=== PATIENT | female | born 1960 | race Caucasian/White ===

== ENCOUNTER 2019-11-25 08:52 | Outpatient (REF) | payer OTHER, SELFPAY | END 2019-11-25 08:53 | disposition home or self-care (01) | LOC: HO.MDS 08:52 | PROVIDERS: PCP Internal Medicine; Visit Provider Internal Medicine Gastroenterology | DX: K51.919 Ulcerative colitis, unspecified with unspecified complications (principal) | CPT/HCPCS: 96413; 96415 ==

== ENCOUNTER 2019-11-28 08:31 | Outpatient (REF) | payer OTHER, SELFPAY ==
[2019-11-28 12:00] LABS: Alanine Aminotransferase 23 U/L (0-31); Aspartate Amino Transferase 20 U/L (5-31); Cholesterol 266 mg/dL; Glucose Fasting 91 mg/dL (60-99); HDL Cholesterol 47 mg/dL; LDL Cholesterol Calculated 181 mg/dl; Triglycerides 192 mg/dL
== END 2019-11-28 08:32 | disposition home or self-care (01) ==
LOC: HO.HMGCLDS 08:31
PROVIDERS: PCP Internal Medicine; Visit Provider Internal Medicine
DX: Z00.01 Encounter for general adult medical examination with abnormal findings (principal); Z13.220 Encounter for screening for lipoid disorders
CPT/HCPCS: 80061; 82947; 84450; 84460

== ENCOUNTER → 2019-12-29 08:43 | Outpatient (BNVA) | payer OTHER, SELFPAY | PROVIDERS: PCP Internal Medicine; Referring Provider Internal Medicine; Visit Provider Internal Medicine Gastroenterology | DX: Z13.89 Encounter for screening for other disorder (principal) ==

== ENCOUNTER 2020-01-19 08:01 | Outpatient (REF) | payer OTHER, SELFPAY ==
[2020-01-19 10:43] LABS: MANUAL DIFF FLAG NO
[2020-01-19 10:44] LABS: Basophils Percent Auto 0.3 % (0-2); Eosinophils Percent Auto 0.4 % (0-4); Hematocrit 49.7 % (37-47); Imm Gran Abs Auto 0.05 X10*3/uL (0.00-0.03); Imm Gran Pct Auto 0.5 % (0.0-0.4); Lymphocytes Absolute Auto 2.1 X10*3/uL (1.2-4.9); Lymphocytes Percent Auto 21.5 % (20-40); Mean Corpuscular HGB Conc 32.2 g/dl (31.0-35.0); Mean Corpuscular Hemoglobin 29.6 pg (27.0-33.0); Mean Corpuscular Volume 91.9 fL (80-98); Mean Platelet Volume 10.5 fL (9.4-12.3); Monocytes Absolute Auto 0.8 X10*3/uL (0.1-1.2); Monocytes Percent Auto 8.3 % (2-11); Neutrophils Absolute Auto 6.9 X10*3/uL (2.0-8.3); Platelet Count 248 X10*3/uL (160-400); Red Blood Count 5.41 X10*6/uL (4.20-5.50); Red Cell Distribution Width 13.4 % (11.0-16.0); White Blood Count 9.9 X10*3/uL (4.8-10.8)
[2020-01-19 11:14] LABS: C Reactive Protein 0.85 mg/dL (< or = 0.50)
[2020-01-19 11:21] LABS: Alanine Aminotransferase 15 U/L (0-31); Albumin Level 3.9 g/dL (3.5-5.0); Alkaline Phosphatase 60 U/L (39-117); Anion Gap 13 (12-20); Aspartate Amino Transferase 14 U/L (5-31); Bilirubin Total 0.6 mg/dL (0.0-1.0); Blood Urea Nitrogen 14 mg/dL (9-16); Carbon Dioxide 29 mmol/L (22-29); Chloride 101 mmol/L (96-108); Estimated Glomerular Filt Rate > 60; Glucose Random 96 mg/dL (60-115); Sodium 138 mmol/L (135-145); Total Protein 6.7 g/dL (6.5-8.0)
[2020-01-19 11:41] LABS: Vitamin D 25-OH Total 17.8 ng/mL (>30)
[2020-01-21 21:43] LABS: TS Negative Control Passed; TS Panel A 0; TS Panel B 0; TS Positive Control Passed; TSpotTB Negative (SeeBelow)
== END 2020-01-19 08:02 | disposition home or self-care (01) ==
LOC: HO.MDS 08:01
PROVIDERS: PCP Internal Medicine; Visit Provider Internal Medicine Gastroenterology
DX: K51.90 Ulcerative colitis, unspecified, without complications (principal)
CPT/HCPCS: 36415; 80053; 82306; 85025; 86140; 86481; 96413; 96415; J1745

== ENCOUNTER 2020-03-15 07:50 | Outpatient (REF) | payer OTHER, SELFPAY | END 2020-03-15 07:51 | disposition home or self-care (01) | LOC: HO.MDS 07:50 | PROVIDERS: PCP Internal Medicine; Visit Provider Internal Medicine Gastroenterology | DX: K51.919 Ulcerative colitis, unspecified with unspecified complications (principal) | CPT/HCPCS: 96413; 96415; J1745 ==

== ENCOUNTER → 2020-03-23 12:53 | Outpatient (BNVA) | payer OTHER, SELFPAY | PROVIDERS: Visit Provider Internal Medicine Gastroenterology ==

== ENCOUNTER 2020-05-10 07:54 | Outpatient (REF) | payer OTHER, SELFPAY | END 2020-05-10 07:55 | disposition home or self-care (01) | LOC: HO.MDS 07:54 | PROVIDERS: PCP Internal Medicine; Visit Provider Internal Medicine Gastroenterology | DX: K51.919 Ulcerative colitis, unspecified with unspecified complications (principal) | CPT/HCPCS: 96413; 96415; J1745 ==

== ENCOUNTER 2020-07-05 07:53 | Outpatient (REF) | payer OTHER, SELFPAY | END 2020-07-05 07:54 | disposition home or self-care (01) | LOC: HO.MDS 07:53 | PROVIDERS: PCP Internal Medicine; Visit Provider Internal Medicine Gastroenterology | DX: K51.90 Ulcerative colitis, unspecified, without complications (principal) | CPT/HCPCS: 96413; 96415; J1745 ==

== ENCOUNTER → 2020-08-17 14:03 | Outpatient (BNVA) | payer OTHER, SELFPAY | PROVIDERS: PCP Internal Medicine; Referring Provider Internal Medicine; Visit Provider Internal Medicine Gastroenterology | DX: K51.90 Ulcerative colitis, unspecified, without complications (principal) | CPT/HCPCS: 99212 ==

== ENCOUNTER 2021-03-25 15:00 | Outpatient (REF) | payer OTHER, SELFPAY ==
[2021-03-25 16:34] LABS: MANUAL DIFF FLAG NO
[2021-03-25 16:40] LABS: Basophils Percent Auto 0.3 % (0-2); Eosinophils Absolute Auto 0.1 X10*3/uL (0.0-0.4); Eosinophils Percent Auto 0.6 % (0-4); Hematocrit 47.4 % (37.0-47.0); Hemoglobin 15.1 g/dl (12.0-16.0); Imm Gran Abs Auto 0.04 X10*3/uL (0.00-0.03); Imm Gran Pct Auto 0.4 % (0.0-0.4); Lymphocytes Absolute Auto 2.7 X10*3/uL (1.2-4.9); Lymphocytes Percent Auto 27.6 % (20-40); Mean Corpuscular HGB Conc 31.9 g/dl (31.0-35.0); Mean Corpuscular Hemoglobin 29.2 pg (27.0-33.0); Mean Corpuscular Volume 91.7 fL (80.0-98.0); Mean Platelet Volume 10.6 fL (9.4-12.3); Monocytes Absolute Auto 0.7 X10*3/uL (0.1-1.2); Monocytes Percent Auto 7.3 % (2-11); Neutrophils Absolute Auto 6.3 x10*3/uL (2.0-8.3); Neutrophils Percent Auto 63.8 % (45-73); Platelet Count 277 X10*3/uL (160-400); Red Blood Count 5.17 X10*6/uL (4.20-5.50); Red Cell Distribution Width 13.6 % (11.0-16.0); White Blood Count 9.8 X10*3/uL (4.8-10.8)
[2021-03-25 16:59] LABS: Alanine Aminotransferase 14 U/L (0-31); Alkaline Phosphatase 62 U/L (39-117); Anion Gap 11 (12-20); Aspartate Amino Transferase 17 U/L (5-31); Bilirubin Total 0.2 mg/dL (0.0-1.0); Blood Urea Nitrogen 19 mg/dL (9-16); C Reactive Protein 0.26 mg/dL (< or = 0.50); Calcium 9.4 mg/dL (8.4-10.2); Carbon Dioxide 29 mmol/L (22-29); Chloride 104 mmol/L (96-108); Estimated Glomerular Filt Rate > 60; Glucose Random 95 mg/dL (60-115); Potassium 4.4 mmol/L (3.3-5.1); Sodium 140 mmol/L (135-145); Total Protein 6.7 g/dL (6.5-8.0)
[2021-03-25 17:18] LABS: Erythrocyte Sedimentation Rate 9 MM/HR (0-20)
[2021-03-25 17:19] LABS: Ferritin 83 ng/mL (10-250)
== END 2021-03-25 15:01 | disposition home or self-care (01) ==
LOC: HO.HMGCLDS 15:00
PROVIDERS: Visit Provider Internal Medicine Gastroenterology
DX: K51.90 Ulcerative colitis, unspecified, without complications (principal); K75.81 Nonalcoholic steatohepatitis (NASH); Z79.899 Other long term (current) drug therapy
CPT/HCPCS: 36415; 80053; 82728; 85025; 85652; 86140

== ENCOUNTER → 2021-03-28 13:46 | Outpatient (BNVA) | payer OTHER, SELFPAY | PROVIDERS: PCP Internal Medicine; Referring Provider Internal Medicine; Visit Provider Internal Medicine Gastroenterology | DX: K51.90 Ulcerative colitis, unspecified, without complications (principal) | CPT/HCPCS: 99212 ==

== ENCOUNTER 2021-07-12 07:00 | Outpatient (RCR) | payer OTHER, SELFPAY ==
--- NOTE | 2021-06-20 10:51 | MHC.PT.EP ---
[facility] [place] Office [place] Office [place] Office [address] [phone] F: [phone] F: [phone] F: [phone] F: [phone] Physical Therapy Plan of Care Date of Evaluation: Date of Surgery: none Diagnosis: pain in R hip Assessment: Patient is a 61 year old R handed female who presents with s/s consistent with R hip pain. 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 Patient past medical history includes R femur fracture. Current impairments include pain, posture, flexibility, ROM, strength, activity tolerance and functional mobility. Functional limitations include decreased ability to negotiate stairs, walk and stand longer duration, get in and out of car and transfer. Patient is motivated with good rehab potential. Skilled PT will address impairments and functional limitations in order to achieve goals. Frequency and Duration: The patient will be seen 2x/week for 5 weeks Short Term Goals: I with HEP - 2 weeks R LE strength 4/5 grossly - 3 weeks TTP absent - 3 weeks [employer] Goals: R LE strength 4+/5 grossly - 5 weeks Symmetrical ROM - 5 weeks LEFS 56/80 - 5 weeks Treatment Plan: Modalities to reduce pain, spasms and effusion. Manual therapy to restore motion and function. Therapeutic exercise to improve strength and flexibility. Neuromuscular re-education for posture and balance. Therapeutic activities to return to functional activities of daily living. Electronically signed by: Srinivas Justice, PT Please sign and return to therapist. Thank you for your referral.
--- NOTE | 2021-11-03 10:34 | MHC.PT.DC ---
[facility] [place] [facility] [place] Office [place] Office [address] Gorge Hurtado [address] [phone] F: [phone] F: [phone] F: [phone] F: [phone] Physical Therapy Discharge Report Diagnosis: pain in R hip Date of Surgery: none Date of Evaluation: 06/17/21 Date of Discharge: 07/26/21 Treatments to Date: 5 Cancellations to Date: No Shows to Date: Discharge Status: Improved Function Independent with HEP Discharge Summary: 07/12/21: pt progressed with strength and stability, improved gait symmetry, strength and activity tolerance. min discomfort noted over last 3 visits. 07/06/21: pt still feeling significantly improved with pain and strength, function, mechanics with walking. continue to progress as tolerated. 06/29/21: pt is pain free. notes doing the HEP every day. we progressed strength and will continue to progress strength as tolerated. 06/23/21: we progressed and updated HEP today. pt will attempt to continue while in [place] for a few days. will return on Sunday and we intend to continue with progression. Patient is a 61 year old R handed female who presents with s/s consistent with R hip pain. 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 Patient past medical history includes R femur fracture. Current impairments include pain, posture, flexibility, ROM, strength, activity tolerance and functional mobility. Functional limitations include decreased ability to negotiate stairs, walk and stand longer duration, get in and out of car and transfer. Patient is motivated with good rehab potential. Skilled PT will address impairments and functional limitations in order to achieve goals. Electronically signed by: Srinivas Justice, PT Please sign and return to therapist. Thank you for your referral.
== END 2021-11-03 10:34 | disposition home or self-care (01) ==
LOC: HO.PTCHIC 07:00
PROVIDERS: PCP Internal Medicine; Visit Provider Internal Medicine
DX: M25.551 Pain in right hip (principal)
CPT/HCPCS: 97110; 97162

== ENCOUNTER 2022-01-10 07:48 | Outpatient (REF) | payer OTHER, SELFPAY ==
--- NOTE | ~2022-01-10 | MM_ITS ---
EXAMINATION: MM SCREENING DIGITAL BREAST TOMOSYNTHESIS, BILATERAL CLINICAL INFORMATION: Screening. Asymptomatic. The lifetime risk of breast cancer based on the Tyrer-Cuzick Model is 6%. COMPARISON: Mammography: 12/23/2018 TECHNIQUE: Digital breast tomosynthesis is performed in both the craniocaudal and mediolateral oblique views along with computer-aided detection (CAD). Synthesized 2D images are generated from the tomosynthesis. Additional right MLO view is provided. FINDINGS: The breasts are heterogeneously dense, which may obscure small masses (ACR BI-RADS breast composition Category c). Fibronodular parenchymal pattern is similar to prior exam. There is no interval significant mass or architectural abnormality or developing density. Again, there are smooth benign smooth nodularity with rim calcification central 9:00 left breast and 2 right upper outer quadrant. Diffuse bilateral central and upper outer quadrant calcifications are again seen, overall mildly symmetrically increased. No focal suspicious calcifications. The axilla and skin contours are unremarkable. No significant changes. MM/MM tomosynthesis screening BI IMPRESSION: No mammographic evidence of malignancy. ASSESSMENT: BI-RADS 2: Benign RECOMMENDATION: Routine annual mammography screening. This patient's information was entered into a reminder system with a target due date for their next mammogram.
== END 2022-01-10 07:49 | disposition home or self-care (01) ==
LOC: HO.MAMMO 07:48
PROVIDERS: PCP Internal Medicine; Visit Provider Internal Medicine
DX: Z12.31 Encounter for screening mammogram for malignant neoplasm of breast (principal)
CPT/HCPCS: 77063; 77067

== ENCOUNTER 2022-06-29 07:31 | Outpatient (REF) | payer OTHER, SELFPAY ==
[2022-06-29 12:01] LABS: Anion Gap 10 (12-20); Blood Urea Nitrogen 21 mg/dL (9-16); Calcium 10.1 mg/dL (8.4-10.2); Carbon Dioxide 33 mmol/L (22-29); Chloride 105 mmol/L (96-108); Estimated Glomerular Filt Rate 58; Glucose Fasting 96 mg/dL (60-99); Potassium 4.9 mmol/L (3.3-5.1); Sodium 143 mmol/L (135-145)
== END 2022-06-29 07:32 | disposition home or self-care (01) ==
LOC: HO.HMGCLDS 07:31
PROVIDERS: PCP Internal Medicine; Visit Provider Internal Medicine
DX: Z00.01 Encounter for general adult medical examination with abnormal findings (principal); E78.2 Mixed hyperlipidemia; J45.20 Mild intermittent asthma, uncomplicated; K51.90 Ulcerative colitis, unspecified, without complications; R79.89 Other specified abnormal findings of blood chemistry; Z78.0 Asymptomatic menopausal state
CPT/HCPCS: 36415; 80048

== ENCOUNTER 2022-08-01 12:53 | Outpatient (AMB) | payer OTHER, SELFPAY ==
--- NOTE | 2022-08-01 13:04 | A.OFFPC_ITS ---
Vital Signs 08/01/22 13:28 Height 5 ft 2 in Weight 141 lb BMI 25.8 BP 132/70 Blood Pressure Location Lt brachial Position Sitting Intake Visit Reasons: follow up on Chantix Intake Note: Pt is here today to f/u chantix Allergies peanut Allergy (Unknown, Verified 12/27/22 08:53) itchy throat talc Allergy (Unknown, Verified 12/27/22 08:53) cough, itchy throat rosuvastatin Adverse Reaction (Unknown, Verified 12/27/22 08:53) myalgia Medication List - Last Reconciled 02/12/23 by Afsaneh Harley MD albuterol sulfate 2.5 mg (3 mL) inhalation Q4-6H PRN fluticasone propionate 50 mcg/actuation 1 spray intranasal DAILY magnesium oxide 400 mg PO DAILY montelukast 10 mg PO QPM nebulizer accessories As directed for updraft treatments Symbicort 160-4.5 mcg/actuation (budesonide-formoterol) 2 puffs PO QPM NS varenicline 1 mg PO BID Ventolin HFA 90 mcg/actuation (albuterol sulfate) 2 puffs PO Q6H PRN NS Tobacco use date assessed: 08/01/22 Dental Screening Dental Screen Date: 08/01/22 Did you have a dental visit in the last 12 months?: Yes Did you have a dental problem in the last 6 months where you did not have access to dental care?: No Was dental information given to patient?: Patient has dentist HPI follow up on Chantix HPI Details 62-year-old Katarzyna here today for follow- up regarding her cigarette smoking. She has started taking Chantix on last visit a month ago with successful quitting of smoking reported. Has been feeling well with no complaints at present time. Would like to continue taking Chantix to prevent relapse. [facility] Medical History (Updated 12/27/22 @ 09:30 by Afsaneh Harley MD) Leg cramping Moderate persistent asthma Smoker unmotivated to quit Tubular adenoma of colon Right hip pain Generalized anxiety disorder Menopause Cervical cancer screening Mixed dyslipidemia Low vitamin D level Infliximab (Remicade) long-term use Medication monitoring encounter Surgical History History of colonoscopy History of colonoscopy History of esophagogastroduodenoscopy (EGD) Family History Father CVD (cardiovascular disease) Hyperlipidemia Myocardial infarction Mother HTN (hypertension) Substance use disorder Mental health disorder Brother Depression Mental health disorder Paternal Aunt Myocardial infarction Sister Mental health disorder Son No problems noted. Son No problems noted. Daughter No problems noted. 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 1. Little interest or pleasure in doing things: not at all 2. Feeling down, depressed, or hopeless: not at all 3. Trouble falling or staying asleep, or sleeping too much: not at all 4. Feeling tired or having little energy: not at all 5. Poor appetite or overeating: not at all 6. Feeling bad about yourself - or that you are a failure or have let yourself or your family down: not at all 7. Trouble concentrating on things, such as reading the newspaper or watching television: not at all 8. Moving or speaking so slowly that other people could have noticed. Or the opposite - being so fidgety or restless that you have been moving around a lot more than usual: not at all 9. Thoughts that you would be better off or of hurting yourself in some way: not at all Total score: 0 Depression Screening Interpretation: Negative Source: Developed by Drs. Nj Machuca, Tracey Givens, Raul Robbins and colleagues, with an educational spencer from [employer]. Thrive Questionnaire Date Thrive assessed: 06/09/21 AUDIT C Alcohol Use Questionnaire (AUDIT-C) 1. How often do you have a drink containing alcohol?: Never Total Score: 0 ZULAY-7 AMB Questionnaire ZULAY-7 Date ZULAY - 7 assessed: 06/09/21 Source: Developed by Drs. Nj Machuca, Tracey Givens, Raul Robbins and colleagues, with an educational spencer from [employer]. Review of Systems Const All systems reviewed & are unremarkable except as noted in HPI and below Physical exam (Primary Care) Vital Signs: Last Vital Signs BP 132/70 08/01/22 13:28 BMI result Body Mass Index 25.8 Tobacco/Smoking Status: Tobacco use Status Tobacco use date assessed 08/01/22 08/01/22 13:33 Patient Tobacco Use Status Current someday Tobacco 08/01/22 13:33 Tobacco use type Cigarette 08/01/22 13:06 e-Cigarette/Vaping Use Never Used 08/01/22 13:06 PHQ-9: PHQ-9 Score PHQ-9: Total score 0 08/01/22 13:33 Depression Screening Interpretation: Negative Thrive Assessment: Date of Thrive Assessment Date Thrive assessed 06/09/21 08/01/22 13:06 Const Other: Alert oriented x3, no acute distress noted ambulatory with normal gait Orientation/consciousness: patient oriented x3 Neck Neck: Yes full ROM, Yes no lymphadenopathy and Yes supple Resp Effort & Inspection: normal respiratory effort and able to speak in complete sentences Auscultation: clear to auscultation bilaterally Cardio Other: S1-S2 present regular rate and rhythm GI Inspection: Yes normal to inspection Palpation (GI): Soft to palpation, nontender, no guarding and no masses Auscultation: normal bowel sounds Back/Spine/Pelvis Back: No back tenderness Skin General skin exam: no rashes or lesions noted Neuro General: patient oriented x3, gait normal, tone normal, moves all extremities, Normal light touch and pain sensation, no focal motor deficits, CN's II-XI i ntact bilaterally and normal sensation to monofilament Extrem Other: No gross bone deformity or joint swelling seen, General: Yes full ROM, Yes no joint enlargement, Yes no clubbing, cyanosis or edema, Yes no calf tenderness and Yes normal gait Psych Appearance: grossly normal and well kempt Mental Status: mental status grossly normal Speech and movement: Normal speech and movement present Affect: normal affect Attitude: cooperative Thought process: Normal thought process present Thought content: Normal thought content present Assessment and Plan Assessment & Plan (1) Currently attempting to quit smoking: Code(s): Z72.0 - Tobacco use Plan: Has been tolerating Chantix, will continue, prescription sent for varenicline 1 mg per tablet to take 1 tablet twice a day for month. Would help reduce further cravings from nicotine. Medications: New varenicline 1 mg PO BID 56 tabs 1RF Coding Level of Care Code Est Pt Level 3 (82910) Diagnoses Currently attempting to quit smoking Z72.0
[2022-08-01 13:28] VITALS: BP 132/70; BMI 25.8
== END 2022-08-01 14:24 | disposition home or self-care (01) ==
PROVIDERS: Visit Provider Internal Medicine
DX: Z72.0 Tobacco use (principal)
CPT/HCPCS: 99213

== ENCOUNTER 2022-08-03 07:38 | Outpatient (REF) | payer OTHER, SELFPAY ==
[2022-08-03 11:55] LABS: Alanine Aminotransferase 13 U/L (0-31); Aspartate Amino Transferase 18 U/L (5-31); Cholesterol 269 mg/dL; HDL Cholesterol 54 mg/dL; LDL Cholesterol Calculated 176 mg/dl; Triglycerides 199 mg/dL
[2022-08-03 12:18] LABS: Vitamin D 25-OH Total 43.3 ng/mL (>30)
== END 2022-08-03 07:39 | disposition home or self-care (01) ==
LOC: HO.HMGCLDS 07:38
PROVIDERS: PCP Internal Medicine; Visit Provider Internal Medicine
DX: Z00.01 Encounter for general adult medical examination with abnormal findings (principal); E78.2 Mixed hyperlipidemia; J45.20 Mild intermittent asthma, uncomplicated; K51.90 Ulcerative colitis, unspecified, without complications; R79.89 Other specified abnormal findings of blood chemistry; Z78.0 Asymptomatic menopausal state
CPT/HCPCS: 36415; 80061; 82306; 84450; 84460

== ENCOUNTER 2022-12-27 08:19 | Outpatient (AMB) | payer OTHER, SELFPAY ==
--- NOTE | 2022-12-27 08:31 | A.OFFPC_ITS ---
Vital Signs 12/27/22 08:34 Height 5 ft 2 in Weight 149 lb 4 oz BMI 27.3 BP 132/84 Blood Pressure Location Lt brachial Position Sitting Pulse 57 Pulse Source Pulse Oximeter Pulse Oximetry (%) 98 Oxygen Delivery Method Room Air Intake Visit Reasons: Annual PE Intake Note: pt is here for her Annual PE pt would like the flu vaccine Allergies peanut Allergy (Unknown, Verified 12/27/22 08:53) itchy throat talc Allergy (Unknown, Verified 12/27/22 08:53) cough, itchy throat rosuvastatin Adverse Reaction (Unknown, Verified 12/27/22 08:53) myalgia Medication List - Last Reconciled 12/27/22 by Afsaneh Harley MD albuterol sulfate 90 mcg/actuation (Ventolin HFA) 2 puffs PO Q6H PRN albuterol sulfate 2.5 mg (3 mL) inhalation Q4-6H PRN fluticasone propionate 50 mcg/actuation 1 spray intranasal DAILY montelukast 10 mg PO QPM nebulizer accessories As directed for updraft treatments Symbicort 160-4.5 mcg/actuation (budesonide-formoterol) 2 puffs PO QPM NS varenicline 1 mg PO BID Tobacco use date assessed: 12/27/22 Dental Screening Dental Screen Date: 12/27/22 Did you have a dental visit in the last 12 months?: Yes Did you have a dental problem in the last 6 months where you did not have access to dental care?: No Was dental information given to patient?: Patient has dentist HPI Annual PE HPI Details 62-year-old lady here today for her phys ical exam. She has bronchial asthma currently currently on Symbicort, montelukast and Ventolin inhaler as needed. Due for her flu vaccine, COVID booster and Shingrix vaccination. States that she has been having intermittent episodes of cough and wheezing lately with the change in weather, has only been taking Symbicort 2 inhalations in the morning and recently just started back on the montelukast. She also has not been using her spacer when using her inhalers. Complains of recurrent painful muscle cramps in her legs at the end of her work day at [employer]. Has ulcerative colitis currently being followed now by Dr. Duenas, overdue for a repeat colonoscopy screening. Has had a tubular adenoma removed on colonoscopy done [place] [address] Mark. She was supposed to get it done last year but did not follow through. She has an appointment already scheduled for her screening mammogram 01/16/2023 at [facility], but does not want to get cervical cancer screening/Pap smear . [facility] Medical History (Updated 12/27/22 @ 09:30 by Afsaneh Harley MD) Leg cramping Moderate persistent asthma Smoker unmotivated to quit Tubular adenoma of colon Right hip pain Generalized anxiety disorder Menopause Cervical cancer screening Mixed dyslipidemia Low vitamin D level Infliximab (Remicade) long-term use Medication monitoring encounter Surgical History History of colonoscopy History of colonoscopy History of esophagogastroduodenoscopy (EGD) Family History Father CVD (cardiovascular disease) Hyperlipidemia Myocardial infarction Mother HTN (hypertension) Substance use disorder Mental health disorder Brother Depression Mental health disorder Paternal Aunt Myocardial infarction Sister Mental health disorder Son No problems noted. Son No problems noted. Daughter No problems noted. 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 1. Little interest or pleasure in doing things: not at all 2. Feeling down, depressed, or hopeless: not at all 3. Trouble falling or staying asleep, or sleeping too much: not at all 4. Feeling tired or having little energy: not at all 5. Poor appetite or overeating: not at all 6. Feeling bad about yourself - or that you are a failure or have let yourself or your family down: not at all 7. Trouble concentrating on things, such as reading the newspaper or watching television: not at all 8. Moving or speaking so slowly that other people could have noticed. Or the opposite - being so fidgety or restless that you have been moving around a lot more than usual: not at all 9. Thoughts that you would be better off or of hurting yourself in some way: not at all Total score: 0 Depression Screening Interpretation: Negative Depression Screening Done: Yes 47084 - PHQ-9 Billing: Yes Source: Developed by Drs. Nj Machuca, Tracey Givens, Raul Robbins and colleagues, with an educational spencer from [employer]. Thrive Questionnaire Date Thrive assessed: 12/27/22 I am a: Patient What is your living situation today?: I have a steady place to live Within the past 12 months, did the food you bought not last and you didn't have the money to get more?: Never true Within the past 12 months, did you worry whether your food would run out before you got money to buy more?: Never true Do you have trouble paying for medicines?: No Do you have trouble getting transportation to medical appointments?: No Do you have trouble paying your heating and electricity bill?: No Do you have trouble taking care of your child, family member or friend?: No Do you have trouble with day-to-day activities such as bathing, preparing meals, shopping, managing finances, etc.?: No Are you currently unemployed and looking for a job?: No Are you interested in more education?: No Please select the resources that you would like help with: None AUDIT C Alcohol Use Questionnaire (AUDIT-C) 1. How often do you have a drink containing alcohol?: Never Total Score: 0 ZULAY-7 AMB Questionnaire ZULAY-7 Date ZULAY - 7 assessed: 12/27/22 Feeling nervous, anxious, or on edge: 0 = Not at all Not being able to stop or control worryin = Not at all Worrying too much about different things: 0 = Not at all Trouble relaxin = Not at all Being so restless that it is hard to sit still: 0 = Not at all Becoming easily annoyed or irritable: 0 = Not at all Feeling afraid as if something awful might happen: 0 = Not at all Total ZULAY-7 score (0-4 normal; 5-9 mild; 10-14 moderate; 15-21 severe): 0 Source: Developed by Drs. Nj Machuca, Tracey Givens, Raul Robbins and colleagues, with an educational spencer from [employer]. ZULAY-7 Assessment Billing ZULAY-7 Assessment Tool: ZULAY-7 Assessment 32825 ACT Questionnaire In the past 4 weeks, how much of the time did your asthma keep you from getting as much done at work, school or at home?: Some of the time During the past 4 weeks, how often have you had shortness of breath?: 1-2 times a week During the past 4 weeks, how often did your asthma symptoms wake you up at night or earlier than usual in the morning?: Once a week During the past 4 weeks, how often have you had to use your rescue inhaler or nebulizer medication?: 2-3 times a week How would you rate your asthma control during the past 4 weeks?: Somewhat controlled ACT Interpretation: Positive ACT Branch: Other (Increased Symbicort dosing and instructed on proper use of inhaler, use spacer) Score: 16 Review of Systems Const Denies fatigue, Denies headache(s) and Denies weakness Eyes Denies change in vision and Denies itchy eyes ENT Denies dizziness, Denies headache(s) and Denies sore throat Card Denies chest pain, Denies lightheadedness, Denies palpitations and Reports dyspnea on exertion (Mild) Resp Denies chest congestion, Reports cough (Intermittent), Reports dyspnea on exertion (Mild) and Reports wheezing (Intermittent) GI Denies abdominal pain, Denies change in bowel habits and Denies heartburn Denies hematuria, Denies urinary frequency, Denies dysuria, Denies prolapse symptoms, Denies urinary incontinence and Denies urinary urgency Musc Reports no additional complaints Skin/Breast Denies breast pain, Denies breast mass, Denies lesions and Denies rash Neuro Denies dizziness, Denies headache(s) and Denies weakness Psych Reports no additional complaints Endo Denies fatigue, Denies polydipsia, Denies polyuria and Denies palpitations Clarke/Lymph Denies easy bruising Aller/Immun Denies itchy eyes, Denies seasonal rhinorrhea and Reports wheezing (Intermittent) Physical exam (Primary Care) Vital Signs: Last Vital Signs Pulse 57 12/27/22 08:34 BP 132/84 12/27/22 08:34 Pulse Ox 98 12/27/22 08:34 Oxygen Delivery Method Room Air 12/27/22 08:34 BMI result Body Mass Index 27.3 BMI Assessment/Plan discussion: High BMI High, discussed plan: lifestyle, weight reduction, dietary and physical activity Tobacco/Smoking Status: Tobacco use Status Tobacco use date assessed 12/27/22 12/27/22 08:39 Patient Tobacco Use Status Former Tobacco user 12/27/22 08:39 Tobacco use type Cigarette 12/27/22 08:32 e-Cigarette/Vaping Use Never Used 12/27/22 08:32 Are you ready to quit: No Tobacco cessation counseling provided: Yes Depression Screening Interpretation: Negative Thrive Assessment: Date of Thrive Assessment Date Thrive assessed 06/09/21 12/27/22 08:32 Const Other: Alert oriented x3, no acute distress noted ambulatory with normal gait Orientation/consciousness: patient oriented x3 HENMT Head: Yes normocephalic and Yes atraumatic Ears: hearing grossly normal bilaterally, external ears normal, TM's normal bilaterally and EAC's normal General nose exam: Normal external nose present Face and sinus: Yes face symmetric Mouth: Normal oral and palatal mucosa present and moist mucous membranes Eyes General: appearance normal, both eyes and all related structures Neck Neck: Yes full ROM, Yes no lymphadenopathy and Yes supple Chest Chest palpation & inspection: normal inspection of the chest Breast/axilla inspection: normal inspection of the breasts Breast/axilla palpation: normal palpation of the breasts Resp Effort & Inspection: normal respiratory effort and able to speak in complete sentences Auscultation: clear to auscultation bilaterally Cardio Other: S1-S2 present regular rate and rhythm GI Inspection: Yes normal to inspection Palpation (GI): Soft to palpation, nontender, no guarding and no masses Auscultation: normal bowel sounds Other: Patient declined pelvic exam or getting Pap smear done General: Yes no CVA tenderness Back/Spine/Pelvis Back: no CVA tenderness and No back tenderness Skin General skin exam: no rashes or lesions noted Neuro General: patient oriented x3, gait normal, tone normal, moves all extremities, Normal light touch and pain sensation, no focal motor deficits, CN's II-XI intact bilaterally and normal sensation to monofilament Extrem Other: No gross bone deformity or joint swelling seen, General: Yes full ROM, Yes no joint enlargement, Yes no clubbing, cyanosis or edema, Yes no calf tenderness and Yes normal gait Psych Appearance: grossly normal and well kempt Mental Status: mental status grossly normal Speech and movement: Normal speech and movement present Affect: normal affect Attitude: cooperative Thought process: Normal thought process present Thought content: Normal thought content present Office Procedures Flu Questionnaire Does the patient have a severe egg allergy?: No Does the patient have severe life threatening allergies?: No Does the patient have a fever or illness today?: No Has the patient ever had Guillain-[place] Syndrome?: No Has the patient ever had any past reaction to a flu shot?: No Immunizations flu vacc [id number] 6mos up(PF) 60 mcg(15 mcgx4)/0.5 mL IM syringe Performing Provider: Afsaneh Harley MD [facility] Administered by: Jasmin Bruno CMA on 12/27/22 09:02 Dose Route Admin Location Dispensed Lot Number Expiration Date NDC Survey Manager 0.5 mL IM Left Deltoid 0.5 mL [id number] 08/12/23 09661-149-99 [employer] VIS Given Date VIS Provided VIS Publication Date 12/27/22 Single Vaccine 20 Eligibility Eligibility Date Funding Source Not [facility] Eligible 12/27/22 Private Assessment and Plan Assessment & Plan (1) Annual visit for general adult medical examination with abnormal findings: Code(s): Z00.01 - Encounter for general adult medical examination with abnormal findings Plan: Will check appropriate labs. Recommended dental visit every 6 months and regular eye exams, at least every 2 years. Take adequate calcium in diet and vitamin-D 3 at 2000 IU per cap once a day, in addition to weight-bearing exercises to help maintain good muscle tone and weight control. Instructed to do self-breast exam, and continue to get yearly mammogram, reminded that she has an appointment already scheduled for 01/16/2023. Flu vaccine given today reminded to get her COVID booster and Shingrix vaccination. Up-to-date with her Tdap. Reminded again that she is overdue for screening colonoscopy, to call GI clinic to schedule (2) Moderate persistent asthma: Code(s): J45.40 - Moderate persistent asthma, uncomplicated Qualifiers: Asthma complication type: uncomplicated Qualified Code(s): J45.40 - Moderate persistent asthma, uncomplicated Plan: Instructed on proper use of in her inhaler, use spacer, increase Symbicort dosing to 2 inhalations every 12 hours, rinse mouth after use. Continue using a Ventolin inhaler as needed for episodes of bronchospasm and wheezing, continue with, up-to-date with her pneumonia vaccination, reminded to get her Shingrix vaccine and COVID booster montelukast. Flu vaccine given today (3) Tubular adenoma of colon: Code(s): D12.6 - Benign neoplasm of colon, unspecified Plan: Patient reminded again that she is overdue to get her screening colonoscopy repeated. Patient to contact GI clinic at [facility] to schedule appointment (4) Mixed dyslipidemia: Code(s): E78.2 - Mixed hyperlipidemia Plan: Fasting lipid panel ordered, adherence to low-cholesterol diet and continue with regular exercise recommended (5) Ulcerative colitis without complications: Code(s): K51.90 - Ulcerative colitis, unspecified, without complications Plan: Currently followed by GI, asymptomatic. Overdue for her repeat colonoscopy (6) Leg cramping: Code(s): R25.2 - Cramp and spasm Plan: Prescription sent for magnesium oxide 400 mg per capsule to take once a day, advised to stay well-hydrated Orders: Orders Lipid Panel Today D12.6 - Benign neoplasm of colon, unspecified, E78.2 - Mixed hyperlipidemia, F41.1 - Generalized anxiety disorder, J45.40 - Moderate persistent asthma, uncomplicated, K51.90 - Ulcerative colitis, unspecified, wit hout complications, Z00.01 - Encounter for general adult medical examination with abnormal findings, Z78.0 - Asymptomatic menopausal state Vitamin D 25-OH Total Today D12.6 - Benign neoplasm of colon, unspecified, E78.2 - Mixed hyperlipidemia, F41.1 - Generalized anxiety disorder, J45.40 - Moderate persistent asthma, uncomplicated, K51.90 - Ulcerative colitis, unspecified, without complications, Z00.01 - Encounter for general adult medical examination with abnormal findings, Z78.0 - Asymptomatic menopausal state Alanine Aminotransferase Today D12.6 - Benign neoplasm of colon, unspecified, E78.2 - Mixed hyperlipidemia, F41.1 - Generalized anxiety disorder, J45.40 - Moderate persistent asthma, uncomplicated, K51.90 - Ulcerative colitis, u nspecified, without complications, Z00.01 - Encounter for general adult medical examination with abnormal findings, Z78.0 - Asymptomatic menopausal state Aspartate Amino Transferase Today D12.6 - Benign neoplasm of colon, unspecified, E78.2 - Mixed hyperlipidemia, F41.1 - Generalized anxiety disorder, J45.40 - Moderate persistent asthma, uncomplicated, K51.90 - Ulcerative colitis, unspecified, without complications, Z00.01 - Encounter for general adult medical examination with abnormal findings, Z78.0 - Asymptomatic menopausal state Influenza [id number] Immunization Today Z23 - Encounter for immunization Complete Blood Count Auto Diff Today D12.6 - Benign neoplasm of colon, unspecified, E78.2 - Mixed hyperlipidemia, F41.1 - Generalized anxiety disorder, J45.40 - Moderate persistent asthma, uncomplicated, K51.90 - Ulcerative colitis, unspecified, without complications, Z00.01 - Encounter for general adult medical examination with abnormal findings, Z78.0 - Asymptomatic menopausal state Medications: New magnesium oxide 400 mg PO DAILY 30 caps 0RF Review Declined Pap Smear: 12/27/22 Coding Level of Care Code Est Pt Prev Care 40-64y(45210) Diagnoses Annual visit for general adult medical examination with abnormal findings Z00.01 Moderate persistent asthma without complication J45.40 Asthma complication type: uncomplicated Tubular adenoma of colon D12.6 Mixed dyslipidemia E78.2 Ulcerative colitis without complications K51.90 Leg cramping R25.2 Additional Codes ZULAY-7 Assessment Billing - ZULAY-7 Assessment Tool: ZULAY-7 Assessment 95881 ([id number])
[2022-12-27 08:34] VITALS: BP 132/84; PULSE 57; O2SAT 98; BMI 27.3
== END 2022-12-27 09:15 | disposition home or self-care (01) ==
PROVIDERS: PCP Internal Medicine; Visit Provider Internal Medicine
DX: Z00.00 Encounter for general adult medical examination without abnormal findings (principal); K51.90 Ulcerative colitis, unspecified, without complications; J45.40 Moderate persistent asthma, uncomplicated; D12.6 Benign neoplasm of colon, unspecified; Z23 Encounter for immunization; E78.2 Mixed hyperlipidemia; R25.2 Cramp and spasm
CPT/HCPCS: 90471; 90686; 99396

== ENCOUNTER 2023-01-16 07:18 | Outpatient (REF) | payer OTHER, SELFPAY ==
--- NOTE | ~2023-01-16 | MM_ITS ---
EXAMINATION: MM SCREENING DIGITAL BREAST TOMOSYNTHESIS, BILATERAL CLINICAL INFORMATION: Screening. Asymptomatic. COMPARISON: Mammography: This study is compared with prior exams dating back to 2019. TECHNIQUE: Digital breast tomosynthesis is performed in both the craniocaudal and mediolateral oblique views along with computer-aided detection (CAD). Synthesized 2D images are generated from the tomosynthesis. FINDINGS: The breasts are heterogeneously dense, which may obscure small masses (ACR BI-RADS breast composition Category c). There are no significant masses, abnormal calcifications, or other abnormalities. Bilateral benign calcifications are present in each breast. There are also bilateral, peripherally calcified, benign oil cysts. MM/MM tomosynthesis screening BI IMPRESSION: No mammographic evidence of malignancy. ASSESSMENT: BI-RADS BI-RADS 2 - Benign Findings RECOMMENDATION: Routine annual mammography screening. 1 year F/U This examination should not preclude the clinical evaluation of a suspicious palpable abnormality. This patient's information was entered into a reminder system with a target due date for their next mammogram.
== END 2023-01-16 07:19 | disposition home or self-care (01) ==
LOC: HO.MAMMO 07:18
PROVIDERS: PCP Internal Medicine; Visit Provider Internal Medicine
DX: Z12.31 Encounter for screening mammogram for malignant neoplasm of breast (principal)
CPT/HCPCS: 77063; 77067

== ENCOUNTER → 2023-01-16 07:30 | Outpatient (BNV) | payer OTHER, SELFPAY | PROVIDERS: PCP Internal Medicine; Visit Provider Radiology Diagnostic Radiology | DX: Z12.31 Encounter for screening mammogram for malignant neoplasm of breast (principal) | CPT/HCPCS: 77063; 77067 ==

== ENCOUNTER 2023-04-18 07:29 | Outpatient (REF) | payer OTHER, SELFPAY ==
[2023-04-18 11:11] LABS: MANUAL DIFF FLAG NO
[2023-04-18 11:13] LABS: Basophils Percent Auto 0.4 % (0-2); Eosinophils Absolute Auto 0.1 X10*3/uL (0.0-0.4); Eosinophils Percent Auto 1.3 % (0-4); Hematocrit 47.5 % (37.0-47.0); Hemoglobin 14.8 g/dl (12.0-16.0); Imm Gran Abs Auto 0.03 X10*3/uL (0.00-0.03); Imm Gran Pct Auto 0.4 % (0.0-0.4); Lymphocytes Absolute Auto 1.9 X10*3/uL (1.2-4.9); Lymphocytes Percent Auto 23.7 % (20-40); Mean Corpuscular HGB Conc 31.2 g/dl (31.0-35.0); Mean Corpuscular Hemoglobin 28.8 pg (27.0-33.0); Mean Corpuscular Volume 92.4 fL (80.0-98.0); Mean Platelet Volume 10.4 fL (9.4-12.3); Monocytes Absolute Auto 0.6 X10*3/uL (0.1-1.2); Monocytes Percent Auto 7.5 % (2-11); Neutrophils Absolute Auto 5.3 x10*3/uL (2.0-8.3); Neutrophils Percent Auto 66.7 % (45-73); Platelet Count 288 X10*3/uL (160-400); Red Blood Count 5.14 X10*6/uL (4.20-5.50); Red Cell Distribution Width 13.7 % (11.0-16.0)
[2023-04-18 13:46] LABS: Alanine Aminotransferase 15 U/L (0-31); Aspartate Amino Transferase 17 U/L (5-31); Cholesterol 293 mg/dL (<200); HDL Cholesterol 54 mg/dL (>40); LDL Cholesterol Calculated 204 mg/dL (<100); Triglycerides 176 mg/dL (<150); Vitamin D 25-OH Total 15.9 ng/mL (>30)
== END 2023-04-18 07:30 | disposition home or self-care (01) ==
LOC: HO.HMGCLDS 07:29
PROVIDERS: PCP Internal Medicine; Visit Provider Internal Medicine
DX: Z00.01 Encounter for general adult medical examination with abnormal findings (principal); J45.40 Moderate persistent asthma, uncomplicated; D12.6 Benign neoplasm of colon, unspecified; F41.1 Generalized anxiety disorder; E78.2 Mixed hyperlipidemia; K51.90 Ulcerative colitis, unspecified, without complications; Z78.0 Asymptomatic menopausal state
CPT/HCPCS: 36415; 80061; 82306; 84450; 84460; 85025

== ENCOUNTER 2023-06-29 10:39 | Outpatient (AMB) | payer OTHER, SELFPAY ==
--- NOTE | 2023-06-29 10:34 | A.OFFPC_ITS ---
Intake Visit Reasons: ffup lipids Intake Note: Pt is having a TH visit to discuss last lab results regarding her cholesterol levels. Allergies peanut Allergy (Unknown, Verified 06/29/23 10:46) itchy throat talc Allergy (Unknown, Verified 06/29/23 10:46) cough, itchy throat rosuvastatin Adverse Reaction (Unknown, Verified 06/29/23 10:46) myalgia Medication List - Last Reconciled 06/29/23 by Afsaneh Harley MD albuterol sulfate 2.5 mg (3 mL) inhalation Q4-6H PRN fluticasone propionate 50 mcg/actuation 1 spray intranasal DAILY magnesium oxide 400 mg PO DAILY montelukast 10 mg PO QPM nebulizer accessories As directed for updraft treatments Symbicort 160-4.5 mcg/actuation (budesonide-formoterol) 2 puffs PO QPM NS Ventolin HFA 90 mcg/actuation (albuterol sulfate) 2 puffs PO Q6H PRN NS Tobacco use date assessed: 06/29/23 Dental Screening Dental Screen Date: 06/29/23 Did you have a dental visit in the last 12 months?: No Was dental information given to patient?: Patient has dentist HPI ffup lipids HPI Details 63-year-old lady here today for follow-u p on her hyperlipidemia. Had recent fasting labs done which showed markedly elevated lipid levels. Including low vitamin-D level. Patient states that she has not been taking any medications to control cholesterol levels, and admits to not being compliant with her diet this past few months. She just started getting more active again now that she is picking up more hours working at home [facility] Medical History Leg cramping Moderate persistent asthma Smoker unmotivated to quit Tubular adenoma of colon Right hip pain Generalized anxiety disorder Menopause Cervical cancer screening Mixed dyslipidemia Low vitamin D level Infliximab (Remicade) long-term use Medication monitoring encounter Surgical History History of colonoscopy History of colonoscopy History of esophagogastroduodenoscopy (EGD) Family History Father CVD (cardiovascular disease) Hyperlipidemia Myocardial infarction Mother HTN (hypertension) Substance use disorder Mental health disorder Brother Depression Mental health disorder Paternal Aunt Myocardial infarction Sister Mental health disorder Son No problems noted. Son No problems noted. Daughter No problems noted. 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 1. Little interest or pleasure in doing things: not at all 2. Feeling down, depressed, or hopeless: not at all 3. Trouble falling or staying asleep, or sleeping too much: not at all 4. Feeling tired or having little energy: not at all 5. Poor appetite or overeating: not at all 6. Feeling bad about yourself - or that you are a failure or have let yourself or your family down: not at all 7. Trouble concentrating on things, such as reading the newspaper or watching television: not at all 8. Moving or speaking so slowly that other people could have noticed. Or the opposite - being so fidgety or restless that you have been moving around a lot more than usual: not at all 9. Thoughts that you would be better off or of hurting yourself in some way: not at all Total score: 0 Depression Screening Interpretation: Negative Depression Screening Done: Yes 84712 - PHQ-9 Billing: Yes Source: Developed by Drs. Nj Machuca, Tracey Givens, Raul Robbins and colleagues, with an educational spencer from [employer]. Thrive Questionnaire Date Thrive assessed: 06/29/23 I am a: Patient What is your living situation today?: I have a steady place to live Within the past 12 months, did the food you bought not last and you didn't have the money to get more?: Never true Within the past 12 months, did you worry whether your food would run out before you got money to buy more?: Never true Do you have trouble paying for medicines?: No Do you have trouble getting transportation to medical appointments?: No Do you have trouble paying your heating and electricity bill?: No Do you have trouble taking care of your child, family member or friend?: No Do you have trouble with day-to-day activities such as bathing, preparing meals, shopping, managing finances, etc.?: No Are you currently unemployed and looking for a job?: No Are you interested in more education?: No THRIVE Score: 0 ZULAY-7 AMB Questionnaire ZULAY-7 Date ZULAY - 7 assessed: 06/29/23 Feeling nervous, anxious, or on edge: 0 = Not at all Not being able to stop or control worryin = Not at all Worrying too much about different things: 0 = Not at all Trouble relaxin = Not at all Being so restless that it is hard to sit still: 0 = Not at all Becoming easily annoyed or irritable: 0 = Not at all Feeling afraid as if something awful might happen: 0 = Not at all Total ZULAY-7 score (0-4 normal; 5-9 mild; 10-14 moderate; 15-21 severe): 0 Source: Developed by Drs. Nj Machuca, Tracey Givens, Raul Robbins and colleagues, with an educational spencer from [employer]. ZULAY-7 Assessment Billing ZULAY-7 Assessment Tool: ZULAY-7 Assessment 56194 Review of Systems Const Denies fatigue, Denies headache(s) and Denies weakness Eyes Denies change in vision ENT Denies dizziness, Denies headache(s) and Denies sore throat Card Denies chest pain, Denies lightheadedness and Denies palpitations Resp Denies chest congestion GI Denies abdominal pain, Denies change in bowel habits and Denies heartburn Denies hematuria, Denies urinary frequency, Denies dysuria, Denies prolapse symptoms, Denies urinary incontinence and Denies urinary urgency Musc Reports no additional complaints Neuro Denies dizziness, Denies headache(s) and Denies weakness Psych Reports no additional complaints Endo Denies fatigue, Denies polydipsia, Denies polyuria and Denies palpitations Clarke/Lymph Denies easy bruising Aller/Immun Denies seasonal rhinorrhea Physical exam (Primary Care) Tobacco/Smoking Status: Tobacco use Status Tobacco use date assessed 06/29/23 06/29/23 10:35 Patient Tobacco Use Status Former Tobacco user 06/29/23 10:35 Tobacco use type Cigarette 06/29/23 10:35 e-Cigarette/Vaping Use Never Used 06/29/23 10:35 PHQ-9: PHQ-9 Score PHQ-9: Total score 0 06/29/23 10:48 Depression Screening Interpretation: Negative Thrive Assessment: Date of Thrive Assessment Date Thrive assessed 01/17/23 06/29/23 10:38 Telehealth Telehealth Telehealth Platform: [employer] Location of provider rendering services: practice address Location of patient: address on file Patient Identification confirmed using: Name, : Yes Telehealth method: video Patient verbally consented to treatment: Yes Patient verbally consented to billing insurance company: Yes Patient informed of any privacy concerns related to visit: Yes Minutes spent on Phone/Video with Pt.: 15 Results Reviewed Results Reviewed: Name: Katarzyna Maldonado Age/Sex: 63/F : 1960 Unit#: [id number] Attend Dr: Afsaneh Harley MD Re04/18/23 Status: DEP REF Location: [facility] Disch: SPEC : [id number] JESSIKA: 04/18/23 STATUS: COMP REQ : [id number] RECD: 04/18/[address]: Afsaneh Harley MD COMP: 04/18/23 ENTERED: 04/18/[address]: ORDERED: AST, ALT, Lipid Panel, Vitamin D 25-OH Test Result Flag Reference AST (GOT) 17 5-31 U/L ALT (GPT) 15 0-31 U/L Triglyceride 176 H <150 mg/dL Desirable Triglyceride: less than 150 mg/dL Borderline High Triglyceride 150-199 mg/dL High Triglyceride: 200-499 mg/dL Very High Triglyceride: greater than or equal to 5OO mg/dL Cholesterol 293 H <200 mg/dL Desirable Cholesterol: less than 200 mg/dL Borderline High Cholesterol: 200-239 mg/dL High Cholesterol: greater than 239 mg/dL LDL Calculated 204 H <100 mg/dL Desirable LDL: less than 100 mg/dL Near Optimal/Above Optimal LDL: 110-129 mg/dL Borderline High LDL: 130-159 mg/dL High LDL: 160-189 mg/dL Very High LDL: greater than or equal to 190 mg/dL HDL 54 >40 mg/dL Desirable HDL: greater than 40 mg/dL Note: This HDL assay may give artificially low results in patients with liver disease. Vit D 25-OH Tot 15.9 L >30 ng/mL Health Based Reference Values* < 20 ng/mL Deficient 20-30 ng/mL Insufficient > 30 ng/mL Sufficient Assessment and Plan Assessment & Plan (1) Mixed dyslipidemia: Code(s): E78.2 - Mixed hyperlipidemia Plan: Discuss recent fasting lab results with patient, which showed markedly elevated LDL cholesterol and triglycerides. Stressed importance of following a low- cholesterol diet, start doing cardio exercises at least 15-30 minutes every day. Will start on pravastatin 80 mg per tablet to take 1 tablet at bedtime, take Co Q10 100 mg daily when taking statin. Will repeat fasting lipid panel again in 3 months (2) Low vitamin D level: Code(s): R79.89 - Other specified abnormal findings of blood chemistry Plan: Pres[place] 3 [place] [address] units or 1250 mcg taken once a week for the next 3 months Orders: Orders Creatine Kinase Total 3 Months E78.2 - Mixed hyperlipidemia, R79.89 - Other specified abnormal findings of blood chemistry, Z78.0 - Asymptomatic menopausal state Aspartate Amino Transferase 3 Months E78.2 - Mixed hyperlipidemia, R79.89 - Other specified abnormal findings of blood chemistry, Z78.0 - Asymptomatic menopausal state Alanine Aminotransferase 3 Months E78.2 - Mixed hyperlipidemia, R79.89 - Other specified abnormal findings of blood chemistry, Z78.0 - Asymptomatic menopausal state Lipid Panel 3 Months E78.2 - Mixed hyperlipidemia, R79.89 - Other specified abnormal findings of blood chemistry, Z78.0 - Asymptomatic menopausal state Vitamin D 25-OH Total 3 Months E78.2 - Mixed hyperlipidemia, R79.89 - Other specified abnormal findings of blood chemistry, Z78.0 - Asymptomatic menopausal state Medications: New pravastatin 80 mg PO BEDTIME 90 tabs 2RF cholecalciferol (vitamin D3) 1,250 mcg PO QWEEK 3 months 13 caps 0RF R79.89 - Other specified abnormal findings of blood chemistry coenzyme Q10 (CoQ-10) 100 mg PO DAILY 90 caps 2RF Refilled fluticasone propionate 50 mcg/actuation 1 spray intranasal DAILY 48 mL 5RF Coding Level of Care Code Tele Est Pt Level 4 (32322) Diagnoses Mixed dyslipidemia E78.2 Low vitamin D level R79.89 Additional Codes ZULAY-7 Assessment Billing - ZULAY-7 Assessment Tool: ZULAY-7 Assessment 43061 ([id number])
== END 2023-06-29 14:13 | disposition home or self-care (01) ==
LOC: HO.HMGC 10:39
PROVIDERS: PCP Internal Medicine; Visit Provider Internal Medicine
DX: E78.2 Mixed hyperlipidemia (principal); R79.89 Other specified abnormal findings of blood chemistry
CPT/HCPCS: 99214

== ENCOUNTER 2023-09-06 07:37 | Outpatient (REF) | payer OTHER, SELFPAY ==
[2023-09-06 11:40] LABS: Alanine Aminotransferase 14 U/L (0-31); Aspartate Amino Transferase 18 U/L (5-31); Cholesterol 278 mg/dL (<200); HDL Cholesterol 55 mg/dL (>40); LDL Cholesterol Calculated 183 mg/dL (<100); Triglycerides 200 mg/dL (<150)
[2023-09-06 12:08] LABS: Vitamin D 25-OH Total 91.8 ng/mL (>30)
== END 2023-09-06 07:38 | disposition home or self-care (01) ==
LOC: HO.HMGCLDS 07:37
PROVIDERS: PCP Internal Medicine; Visit Provider Internal Medicine
DX: R79.89 Other specified abnormal findings of blood chemistry (principal); E78.2 Mixed hyperlipidemia; Z78.0 Asymptomatic menopausal state
CPT/HCPCS: 36415; 80061; 82306; 82550; 84450; 84460

== ENCOUNTER 2023-09-10 11:24 | Outpatient (AMB) | payer OTHER, SELFPAY ==
[2023-09-10 12:00] VITALS: BP 142/90; PULSE 65; O2SAT 97; BMI 27.4
--- NOTE | 2023-09-10 12:00 | MHC.PC.OV ---
Vital Signs 09/10/23 12:00 09/10/23 12:30 Height 5 ft 2 in Weight 150 lb BMI 27.4 BP 142/90 H 130/85 Blood Pressure Location Rt brachial Lt brachial Position Sitting Sitting Pulse 65 Pulse Source Pulse Oximeter Pulse Oximetry (%) 97 Oxygen Delivery Method Room Air Intake Visit Reasons: 3 month follow up Lipids, Vitamin A Intake Note: pt is here for 3 month follow up, with labs Allergies peanut Allergy (Unknown, Verified 09/17/23 03:31) itchy throat talc Allergy (Unknown, Verified 09/17/23 03:31) cough, itchy throat rosuvastatin Adverse Reaction (Unknown, Verified 09/17/23 03:31) myalgia Medication List - Last Reconciled 09/10/23 by Afsaneh Harley MD albuterol sulfate 2.5 mg (3 mL) inhalation Q4-6H PRN cholecalciferol (vitamin D3) 1,250 mcg PO QWEEK 3 months coenzyme Q10 (CoQ-10) 100 mg PO DAILY fluticasone propionate 50 mcg/actuation 1 spray intranasal DAILY magnesium oxide 400 mg PO DAILY montelukast 10 mg PO QPM nebulizer accessories As directed for updraft treatments pravastatin 80 mg PO BEDTIME Symbicort 160-4.5 mcg/actuation (budesonide-formoterol) 2 puffs PO QPM NS Ventolin HFA 90 mcg/actuation (albuterol sulfate) 2 puffs PO Q6H PRN NS Tobacco use date assessed: 06/29/23 Dental Screening Dental Screen Date: 06/29/23 HPI 3 month follow up Lipids, Vitamin A HPI Details 63-year-old lady here today for follow-up on her hyperlipidemia. Has not been taking her pravastatin 80 mg tablets since last visit as she was unable to get her Co Q 10 prescription filled and is afraid to get leg cramps. Latest fasting labs showed lipids higher than last check. [facility] Medical History (Updated 09/10/23 @ 12:36 by Afsaneh Harley MD) Former cigarette smoker Leg cramping Moderate persistent asthma Tubular adenoma of colon Right hip pain Generalized anxiety disorder Menopause Cervical cancer screening Mixed dyslipidemia Low vitamin D level Infliximab (Remicade) long-term use Medication monitoring encounter Surgical History History of colonoscopy History of colonoscopy History of esophagogastroduodenoscopy (EGD) Family History Father CVD (cardiovascular disease) Hyperlipidemia Myocardial infarction Mother HTN (hypertension) Substance use disorder Mental health disorder Brother Depression Mental health disorder Paternal Aunt Myocardial infarction Sister Mental health disorder Son No problems noted. Son No problems noted. Daughter No problems noted. 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 1. Little interest or pleasure in doing things: not at all 2. Feeling down, depressed, or hopeless: not at all 3. Trouble falling or staying asleep, or sleeping too much: not at all 4. Feeling tired or having little energy: not at all 5. Poor appetite or overeating: not at all 6. Feeling bad about yourself - or that you are a failure or have let yourself or your family down: not at all 7. Trouble concentrating on things, such as reading the newspaper or watching television: not at all 8. Moving or speaking so slowly that other people could have noticed. Or the opposite - being so fidgety or restless that you have been moving around a lot more than usual: not at all 9. Thoughts that you would be better off or of hurting yourself in some way: not at all Total score: 0 Depression Screening Interpretation: Negative Depression Screening Done: Yes 40236 - PHQ-9 Billing: Yes Source: Developed by Drs. Nj Machuca, Tracey Givens, Raul Robbins and colleagues, with an educational spencer from [employer]. Thrive Questionnaire Date Thrive assessed: 06/29/23 I am a: Patient What is your living situation today?: I have a steady place to live Within the past 12 months, did the food you bought not last and you didn't have the money to get more?: Never true Within the past 12 months, did you worry whether your food would run out before you got money to buy more?: Never true Do you have trouble paying for medicines?: No Do you have trouble getting transportation to medical appointments?: No Do you have trouble paying your heating and electricity bill?: No Do you have trouble taking care of your child, family member or friend?: No Do you have trouble with day-to-day activities such as bathing, preparing meals, shopping, managing finances, etc.?: No Are you currently unemployed and looking for a job?: No Are you interested in more education?: No Please select the resources that you would like help with: Housing/Fdc Currently or been in a relationship where the following occur: No concerns reported THRIVE Score: 0 AUDIT C Alcohol Use Questionnaire (AUDIT-C) 1. How often do you have a drink containing alcohol?: Never Total Score: 0 ZULAY-7 AMB Questionnaire ZULAY-7 Date ZULAY - 7 assessed: 06/29/23 Feeling nervous, anxious, or on edge: 0 = Not at all Not being able to stop or control worryin = Not at all Worrying too much about different things: 0 = Not at all Trouble relaxin = Not at all Being so restless that it is hard to sit still: 0 = Not at all Becoming easily annoyed or irritable: 0 = Not at all Feeling afraid as if something awful might happen: 0 = Not at all Total ZULAY-7 score (0-4 normal; 5-9 mild; 10-14 moderate; 15-21 severe): 0 Source: Developed by Drs. Nj Machuca, Tracey Givens, Raul Robbins and colleagues, with an educational spencer from [employer]. ZULAY-7 Assessment Billing ZULAY-7 Assessment Tool: ZULAY-7 Assessment 06983 Review of Systems Const Denies fatigue, Denies headache(s) and Denies weakness Eyes Denies change in vision ENT Denies dizziness, Denies headache(s) and Denies sore throat Card Denies chest pain, Denies lightheadedness and Denies palpitations Resp Denies chest congestion GI Denies abdominal pain, Denies change in bowel habits and Denies heartburn Denies hematuria, Denies urinary frequency, Denies dysuria, Denies prolapse symptoms, Denies urinary incontinence and Denies urinary urgency Musc Reports no additional complaints Neuro Denies dizziness, Denies headache(s) and Denies weakness Psych Reports no additional complaints Endo Denies fatigue, Denies polydipsia, Denies polyuria and Denies palpitations Clarke/Lymph Denies easy bruising Aller/Immun Denies seasonal rhinorrhea Physical exam (Primary Care) Vital Signs: Last Vital Signs Pulse 65 09/10/23 12:00 BP 130/85 09/10/23 12:30 Pulse Ox 97 09/10/23 12:00 Oxygen Delivery Method Room Air 09/10/23 12:00 BMI result Body Mass Index 27.4 Tobacco/Smoking Status: Tobacco use Status Tobacco use date assessed 06/29/23 09/10/23 12:00 Patient Tobacco Use Status Former Tobacco user 09/10/23 12:00 Tobacco use type Cigarette 09/10/23 12:00 e-Cigarette/Vaping Use Never Used 09/10/23 12:00 Are you ready to quit: No Tobacco cessation counseling provided: Yes PHQ-9: PHQ-9 Score PHQ-9: Total score 0 09/10/23 12:36 Depression Screening Interpretation: Negative Thrive Assessment: Date of Thrive Assessment Date Thrive assessed 06/29/23 09/10/23 12:00 Currently or been in a relationship where the following occur: No concerns reported Const Other: Alert oriented x3, no acute distress noted ambulatory with normal gait Orientation/consciousness: patient oriented x3 [facility] Head: Yes normocephalic Ears: external ears normal, TM's normal bilaterally and EAC's normal General nose exam: Normal external nose present Face and sinus: Yes face symmetric Mouth: Normal oral and palatal mucosa present and moist mucous membranes Eyes General: appearance normal, both eyes and all related structures Neck Neck: Yes full ROM, Yes no lymphadenopathy and Yes supple Resp Effort & Inspection: normal respiratory effort and able to speak in complete sentences Auscultation: clear to auscultation bilaterally Cardio Other: S1-S2 present regular rate and rhythm GI Inspection: Yes normal to inspection Palpation (GI): Soft to palpation, nontender, no guarding and no masses Auscultation: normal bowel sounds General: Yes no CVA tenderness Back/Spine/Pelvis Back: no CVA tenderness and No back tenderness Skin General skin exam: no rashes or lesions noted Neuro General: patient oriented x3, gait normal, tone normal, moves all extremities, Normal light touch and pain sensation, no focal motor deficits, CN's II-XI intact bilaterally and normal sensation to monofilament Extrem Other: No gross bone deformity or joint swelling seen, General: Yes full ROM, Yes no joint enlargement, Yes no clubbing, cyanosis or edema, Yes no calf tenderness and Yes normal gait Psych Appearance: grossly normal and well kempt Mental Status: mental status grossly normal Speech and movement: Normal speech and movement present Affect: normal affect Attitude: cooperative Thought process: Normal thought process present Thought content: Normal thought content present Results Reviewed Results Reviewed: Name: Katarzyna Maldonado Age/Sex: 63/F : 1960 Unit#: [id number] Attend Dr: Afsaneh Harley MD Re09/06/23 Status: DEP REF Location: [facility] Disch: SPEC : [id number] JESSIKA: 09/06/23 STATUS: COMP REQ : [id number] RECD: 09/06/[address]: Afsaneh Harley MD COMP: 09/06/23 ENTERED: 09/06/[address] [facility] [address]: ORDERED: AST, ALT, CK Total, Lipid Panel, Vitamin D 25-OH Test Result Flag Reference AST (GOT) 18 5-31 U/L ALT (GPT) 14 0-31 U/L CK Total 220 H 26-140 U/L Triglyceride 200 H <150 mg/dL Desirable Triglyceride: less than 150 mg/dL Borderline High Triglyceride 150-199 mg/dL High Triglyceride: 200-499 mg/dL Very High Triglyceride: greater than or equal to 5OO mg/dL Cholesterol 278 H <200 mg/dL Desirable Cholesterol: less than 200 mg/dL Borderline High Cholesterol: 200-239 mg/dL High Cholesterol: greater than 239 mg/dL LDL Calculated 183 H <100 mg/dL Desirable LDL: less than 100 mg/dL Near Optimal/Above Optimal LDL: 110-129 mg/dL Borderline High LDL: 130-159 mg/dL High LDL: 160-189 mg/dL Very High LDL: greater than or equal to 190 mg/dL HDL 55 >40 mg/dL Desirable HDL: greater than 40 mg/dL Note: This HDL assay may give artificially low results in patients with liver disease. Vit D 25-OH Tot 91.8 >30 ng/mL Health Based Reference Values* < 20 ng/mL Deficient 20-30 ng/mL Insufficient > 30 ng/mL Sufficient Assessment and Plan Assessment & Plan (1) Mixed dyslipidemia: Code(s): E78.2 - Mixed hyperlipidemia Plan: Reviewed recent fasting lipid profile with patient with levels higher than last check patient advised to start taking pravastatin again 80 mg at bedtime and get [id number] Co Q10 supplements to take together with this at least 50 units per capsule . Reinforced importance of adherence to low-cholesterol diet and regular exercise, at least 30 minutes 3 to 4 times a week. Advised patient to make healthy food choices, eat more fruits, vegetables, whole grains, wild caught fish and low-fat dairy. Limit amount of meat and fried or fatty food products, as well as processed foods and fast foods. Follow-up scheduled with repeat fasting lipid panel in3 months. Orders: Orders Lipid Panel 11/18/23 E78.2 - Mixed hyperlipidemia, R79.89 - Other specified abnormal findings of blood chemistry Aspartate Amino Transferase 11/18/23 E78.2 - Mixed hyperlipidemia, R79.89 - Other specified abnormal findings of blood chemistry Vitamin D 25-OH Total 11/18/23 E78.2 - Mixed hyperlipidemia, R79.89 - Other specified abnormal findings of blood chemistry Creatine Kinase Total 11/18/23 E78.2 - Mixed hyperlipidemia, R79.89 - Other specified abnormal findings of blood chemistry Alanine Aminotransferase 11/18/23 E78.2 - Mixed hyperlipidemia, R79.89 - Other specified abnormal findings of blood chemistry Coding Level of Care Code Est Pt Level 4 (86378) Complex EM visit Add On G2211 Diagnoses Mixed dyslipidemia E78.2 Additional Codes ZULAY-7 Assessment Billing - ZULAY-7 Assessment Tool: ZULAY-7 Assessment 77257 ([id number])
[2023-09-10 12:30] VITALS: BP 130/85
== END 2023-09-10 12:26 | disposition home or self-care (01) ==
PROVIDERS: PCP Internal Medicine; Visit Provider Internal Medicine
DX: E78.2 Mixed hyperlipidemia (principal)
CPT/HCPCS: 99214; G2211

== ENCOUNTER 2023-12-31 08:32 | Outpatient (AMB) | payer OTHER, SELFPAY ==
[2023-12-31 09:05] VITALS: BP 152/80; PULSE 71; O2SAT 97; BMI 28.9
--- NOTE | 2023-12-31 09:05 | MHC.PC.OV ---
Vital Signs 12/31/23 09:05 12/31/23 09:57 Height 5 ft 2 in Weight 158 lb BMI 28.9 BP 152/80 H 150/90 H Blood Pressure Location Lt brachial Lt brachial Position Sitting Sitting Pulse 71 Pulse Source Pulse Oximeter Pulse Oximetry (%) 97 Oxygen Delivery Method Room Air Intake Visit Reasons: Annual PE Intake Note: Pt is here today for her PE: Last mammogram 01/16/23, colonoscopy 02/26/18 Allergies peanut Allergy (Unknown, Verified 12/31/23 09:29) itchy throat talc Allergy (Unknown, Verified 12/31/23 09:29) cough, itchy throat rosuvastatin Adverse Reaction (Unknown, Verified 12/31/23 09:29) myalgia Medication List - Last Reconciled 12/31/23 by Afsaneh Harley MD albuterol sulfate 2.5 mg (3 mL) inhalation Q4-6H PRN fluticasone propionate 50 mcg/actuation 1 spray intranasal DAILY magnesium oxide 400 mg PO DAILY montelukast 10 mg PO QPM nebulizer accessories As directed for updraft treatments Symbicort 160-4.5 mcg/actuation (budesonide-formoterol) 2 puffs PO QPM NS Ventolin HFA 90 mcg/actuation (albuterol sulfate) 2 puffs PO Q6H PRN NS Tobacco use date assessed: 12/31/23 Dental Screening Dental Screen Date: 12/31/23 Did you have a dental visit in the last 12 months?: No Did you have a dental problem in the last 6 months where you did not have access to dental care?: No Was dental information given to patient?: Patient has dentist HPI Annual PE HPI Details 63-year-old lady with a history of moderate persistent asthma, history of adenomatous polyp of colon, generalized anxiety disorder, mixed dyslipidemia, and ulcerative colitis, here today for physical exam. She is up-to-date with her screening mammogram due again next month. Last colonoscopy was done 02/26/2018 which showed fragments of tubular adenoma polyp removed, over due for repeat colonoscopy. Blood pressure noted to be elevated on today's visit. Denies any accompanying headache on, no lightheadedness, no chest pain or shortness of breath or palpitations. [facility] Medical History (Updated 01/06/24 @ 20:15 by Afsaneh Harley MD) Essential hypertension Former cigarette smoker Leg cramping Moderate persistent asthma Tubular adenoma of colon Right hip pain Generalized anxiety disorder Menopause Cervical cancer screening Mixed dyslipidemia Low vitamin D level Infliximab (Remicade) long-term use Medication monitoring encounter Surgical History History of colonoscopy History of colonoscopy History of esophagogastroduodenoscopy (EGD) Family History Father CVD (cardiovascular disease) Hyperlipidemia Myocardial infarction Mother HTN (hypertension) Substance use disorder Mental health disorder Brother Depression Mental health disorder Paternal Aunt Myocardial infarction Sister Mental health disorder Son No problems noted. Son No problems noted. Daughter No problems noted. 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 [employer] Cognitive needs: No Hearing needs: No Vision needs: Yes Questionnaire Thrive Questionnaire Date Thrive assessed: 12/31/23 I am a: Patient What is your living situation today?: I have a steady place to live Within the past 12 months, did the food you bought not last and you didn't have the money to get more?: Never true Within the past 12 months, did you worry whether your food would run out before you got money to buy more?: Never true Do you have trouble paying for medicines?: No Do you have trouble getting transportation to medical appointments?: No Do you have trouble paying your heating and electricity bill?: No Do you have trouble taking care of your child, family member or friend?: No Do you have trouble with day-to-day activities such as bathing, preparing meals, shopping, managing finances, etc.?: No Are you currently unemployed and looking for a job?: No Are you interested in more education?: No Please select the resources that you would like help with: None Currently or been in a relationship where the following occur: No concerns reported THRIVE Score: 0 ZULAY-7 AMB Questionnaire ZULAY-7 Date ZULAY - 7 assessed: 06/29/23 Source: Developed by Drs. Nj Machuca, Tracey Givens, Raul Robbins and colleagues, with an educational spencer from [employer]. Review of Systems Const Denies fatigue, Denies headache(s) and Denies weakness Eyes Denies change in vision ENT Denies dizziness, Denies headache(s) and Denies sore throat Card Denies chest pain, Denies lightheadedness and Denies palpitations Resp Denies chest congestion GI Denies abdominal pain, Denies melena, Denies bloating, Denies hematochezia, Denies change in bowel habits and Denies heartburn Denies hematuria, Denies urinary frequency, Denies dysuria, Denies prolapse symptoms, Denies urinary incontinence and Denies urinary urgency Musc Reports no additional complaints Skin/Breast Denies breast swelling, Denies breast pain, Denies breast mass, Denies lesions and Denies rash Neuro Denies dizziness, Denies headache(s) and Denies weakness Psych Reports no additional complaints Endo Denies fatigue, Denies polydipsia, Denies polyuria and Denies palpitations Clarke/Lymph Denies easy bruising Aller/Immun Denies seasonal rhinorrhea Physical exam (Primary Care) Vital Signs: Last Vital Signs Pulse 71 12/31/23 09:05 BP 150/90 H 12/31/23 09:57 Pulse Ox 97 12/31/23 09:05 Oxygen Delivery Method Room Air 12/31/23 09:05 BMI result Body Mass Index 28.9 Tobacco/Smoking Status: Tobacco use Status Tobacco use date assessed 12/31/23 12/31/23 09:07 Patient Tobacco Use Status Former Tobacco user 12/31/23 09:07 Tobacco use type Cigarette 12/31/23 09:07 e-Cigarette/Vaping Use Never Used 12/31/23 09:07 Thrive Assessment: Date of Thrive Assessment Date Thrive assessed 12/31/23 12/31/23 09:07 Currently or been in a relationship where the following occur: No concerns reported Advance Care Planning discussion: Completed/Scanned Date of discussion: 12/31/23 Who was present: Patient Forms completed: Health Care Proxy Time spent: 16-45 minutes Actual minutes spent: 3 Const Other: Alert oriented x3, no acute distress noted ambulatory with normal gait Orientation/consciousness: patient oriented x3 [facility] Head: Yes normocephalic Ears: external ears normal, TM's normal bilaterally and EAC's normal General nose exam: Normal external nose present Face and sinus: Yes face symmetric Mouth: Normal oral and palatal mucosa present and moist mucous membranes Eyes General: appearance normal, both eyes and all related structures Neck Neck: Yes full ROM, Yes no lymphadenopathy and Yes supple Resp Effort & Inspection: normal respiratory effort and able to speak in complete sentences Auscultation: clear to auscultation bilaterally Cardio Other: S1-S2 present regular rate and rhythm GI Inspection: Yes normal to inspection Palpation (GI): Soft to palpation, nontender, no guarding and no masses Auscultation: normal bowel sounds General: Yes no CVA tenderness Back/Spine/Pelvis Back: no CVA tenderness and No back tenderness Skin General skin exam: no rashes or lesions noted Neuro General: patient oriented x3, gait normal, tone normal, moves all extremities, Normal light touch and pain sensation, no focal motor deficits, CN's II-XI intact bilaterally and normal sensation to monofilament Extrem Other: No gross bone deformity or joint swelling seen, General: Yes full ROM, Yes no joint enlargement, Yes no clubbing, cyanosis or edema, Yes no calf tenderness and Yes normal gait Psych Appearance: grossly normal and well kempt Mental Status: mental status grossly normal Speech and movement: Normal speech and movement present Affect: normal affect Attitude: cooperative Thought process: Normal thought process present Thought content: Normal thought content present Coding Level of Care Code Est Pt Prev Care 40-64y(31911) Diagnoses Annual visit for general adult medical examination with abnormal findings Z00.01 Essential hypertension I10 Tubular adenoma of colon D12.6 Cervical cancer screening Z12.4 Moderate persistent asthma without complication J45.40 Asthma complication type: uncomplicated Mixed dyslipidemia E78.2 Ulcerative colitis without complications K51.90 Advanced directives, counseling/discussion Z71.89 Additional Codes Vital Signs *Quality* - Advance Care Planning discussion: Completed/Scanned ([id number]) Vital Signs *Quality* - Time spent: 16-45 minutes ([id number]) Assessment & Plan Assessment & Plan (1) Annual visit for general adult medical examination with abnormal findings: Code(s): Z00.01 - Encounter for general adult medical examination with abnormal findings Plan: Will check appropriate labs. Recommended dental visit every 6 months and regular eye exams, at least every 2 years. Take adequate calcium in diet and vitamin-D 3 at 2000 IU per cap once a day, in addition to weight-bearing exercises to help maintain good muscle tone and weight control. Instructed to do self-breast exam, and recommended to get yearly mammogram, , has an appointment already scheduled for next month screening mammogram. Overdue for her cervical cancer screening pelvic exam, referred to [facility]. Up-to-date with all her vaccines, except for her 2nd dose of shingles vaccine . Referred back to [facility] for repeat screening colonoscopy (2) Essential hypertension: Code(s): I10 - Essential (primary) hypertension Category: Medical Plan: Blood pressure not at goal of less than 130/80. Started on lisinopril 5 mg per tablet to take once a day in a.m., reinforced importance of following low-salt diet and regular exercise at least 150 minutes in a week. Schedule an appointment with nurse navigator to check blood pressure in a month and see me back for follow-up in 3 months (3) Tubular adenoma of colon: Code(s): D12.6 - Benign neoplasm of colon, unspecified Category: Medical Plan: Referred back to Dr. Duenas for her repeat colonoscopy screening (4) Cervical cancer screening: Code(s): Z12.4 - Encounter for screening for malignant neoplasm of cervix Category: Medical Plan: Referred to [facility] for her cervical cancer screening and pelvic exam. (5) Moderate persistent asthma: Code(s): J45.40 - Moderate persistent asthma, uncomplicated Category: Medical Qualifiers: Asthma complication type: uncomplicated Qualified Code(s): J45.40 - Moderate persistent asthma, uncomplicated Plan: Doing well on Symbicort, has not had any asthma attacks.. Reminded to gargle after each use (6) Mixed dyslipidemia: Code(s): E78.2 - Mixed hyperlipidemia Category: Medical Plan: Advised to try again pravastatin 80 mg but take it at night with Co Q10 supplement. Repeat another fasting lipid panel in a month (7) Ulcerative colitis without complications: Code(s): K51.90 - Ulcerative colitis, unspecified, without complications Category: Medical Plan: Currently asymptomatic, followed by GI clinic (8) Advanced directives, counseling/discussion: Code(s): Z71.89 - Other specified counseling Plan: Initiated the conversation about Advanced Directives. Advanced Directives help patients prepare for current and future decisions about their medical treatment and place of care. Discussed with patient that it is a process where a patients current condition and prognosis are reviewed, their wishes for information regarding their illness are elicited, and likely medical dilemmas are presented and options discussed. Healthcare proxy form completed. The form can be amended as needed, reviewed yearly and make changes as needed Orders: Referrals [facility] Referral Z12.4 - Encounter for screening for malignant neoplasm of cervix Gastroenterology Referral D12.6 - Benign neoplasm of colon, unspecified Medications: New lisinopril 5 mg PO DAILY 30 tabs 1RF Refilled pravastatin 80 mg PO BEDTIME 90 tabs 2RF
[2023-12-31 09:57] VITALS: BP 150/90
== END 2023-12-31 10:04 | disposition home or self-care (01) ==
PROVIDERS: PCP Internal Medicine; Visit Provider Internal Medicine
DX: Z00.01 Encounter for general adult medical examination with abnormal findings (principal); I10 Essential (primary) hypertension; D12.6 Benign neoplasm of colon, unspecified; Z12.4 Encounter for screening for malignant neoplasm of cervix; J45.40 Moderate persistent asthma, uncomplicated; E78.2 Mixed hyperlipidemia; K51.90 Ulcerative colitis, unspecified, without complications; Z71.89 Other specified counseling; Z00.00 Encounter for general adult medical examination without abnormal findings

== ENCOUNTER → 2023-12-31 08:32 | Outpatient (BNVA) | payer OTHER, SELFPAY | PROVIDERS: PCP Internal Medicine; Visit Provider Internal Medicine | DX: Z00.01 Encounter for general adult medical examination with abnormal findings (principal); I10 Essential (primary) hypertension; D12.6 Benign neoplasm of colon, unspecified; J45.40 Moderate persistent asthma, uncomplicated; E78.2 Mixed hyperlipidemia; K51.90 Ulcerative colitis, unspecified, without complications; Z71.89 Other specified counseling | CPT/HCPCS: 99396; 99497 ==

== ENCOUNTER 2024-01-22 07:19 | Outpatient (REF) | payer OTHER, SELFPAY | END 2024-01-22 07:20 | disposition home or self-care (01) | LOC: HO.MAMMO 07:19 | PROVIDERS: PCP Internal Medicine; Visit Provider Internal Medicine | DX: Z12.31 Encounter for screening mammogram for malignant neoplasm of breast (principal) | CPT/HCPCS: 77063; 77067 ==

== ENCOUNTER → 2024-01-22 07:30 | Outpatient (BNV) | payer OTHER, SELFPAY | PROVIDERS: PCP Internal Medicine; Visit Provider Internal Medicine | DX: Z12.31 Encounter for screening mammogram for malignant neoplasm of breast (principal) | CPT/HCPCS: 77063; 77067 ==

== ENCOUNTER 2024-02-15 10:19 | Outpatient (REF) | payer OTHER, SELFPAY ==
--- NOTE | ~2024-02-15 | MM_ITS ---
EXAMINATION: MM DIAGNOSTIC DIGITAL BREAST TOMOSYNTHESIS, RIGHT Limited right breast ultrasound. CLINICAL INFORMATION: Call back back from screening for asymmetry with questioned distortion in the right breast on MLO view. COMPARISON: Mammography: Comparison is made with available prior examinations. TECHNIQUE: Digital breast tomosynthesis is performed in both the craniocaudal and mediolateral oblique views along with computer-aided detection (CAD). Synthesized 2D images are generated from the tomosynthesis. Limited right breast ultrasound. FINDINGS: The breasts are heterogeneously dense, which may obscure small masses (ACR BI-RADS breast composition Category c). Asymmetry in the superior breast posterior depth on MLO view partially effaces on additional projections. No suspicious other abnormal findings. Targeted color Doppler ultrasound demonstrates a hypoechoic solid mass at 12:00 4 cm from the nipple this is a questionable correlate for the asymmetry seen on mammography measures 10 x 8 x 9 mm. There is a hypoechoic oval circumscribed solid mass versus complicated cyst at 12:00 3 cm from nipple measuring 9 x 6 x 10 mm. Otherwise there is no abnormal findings scanning in the retroareolar region and from 10-1 o'clock. MM/MM tomosynthesis diagnostic RT IMPRESSION: 1. Hypoechoic solid mass at 12:00 4 cm from the nipple. Recommend ultrasound-guided core biopsy at this time. The findings and recommendations were discussed with the patient the procedure will be scheduled. 2. Asymmetry in the superior right breast on MLO view posterior depth unsure if the hypoechoic area at 12:00 4 7 m from the nipple correlates with this area recommend correlation on post biopsy mammogram. Management will be pending pathology of the above mass. 3. Solid mass versus composition is cyst at 12:00 3 cm from nipple. Recommend management pending biopsy of the area 12:00 4 cm from the nipple to include a six-month follow-up of this mass if the above biopsy is benign. ASSESSMENT: BI-RADS BI-RADS 4 - Suspicious finding RECOMMENDATION: Biopsy recommended 6 month follow-up ultrasound recommended for solid mass at 12:00 recent meters from the nipple Management for right breast asymmetry will be pending pathology of the above biopsied mass. Results were provided to the patient at time of visit by the technologist. This patient's information was entered into a reminder system with a target due date for their next mammogram. Electronically signed by: Ana Kaur DO 02/15/2024 11:27 AM EST
== END 2024-02-15 10:20 | disposition home or self-care (01) ==
LOC: HO.MAMMO 10:19
PROVIDERS: PCP Internal Medicine; Visit Provider Internal Medicine
DX: N64.89 Other specified disorders of breast (principal); R92.331 Mammographic heterogeneous density, right breast; N63.11 Unspecified lump in the right breast, upper outer quadrant
CPT/HCPCS: 76642; 77061; 77065

== ENCOUNTER → 2024-02-15 10:45 | Outpatient (BNV) | payer OTHER, SELFPAY | PROVIDERS: PCP Internal Medicine; Visit Provider Internal Medicine | DX: R92.8 Other abnormal and inconclusive findings on diagnostic imaging of breast (principal) | CPT/HCPCS: 76642; 77061; 77065 ==

== ENCOUNTER 2024-02-26 12:37 | Outpatient (AMB) | payer OTHER, SELFPAY ==
--- NOTE | 2024-02-26 12:58 | A.OFFVIS_ITS ---
Vital Signs 3 02/26/24 13:08 Height 5 ft 2 in Weight 161 lb BMI 29.4 BP 171/79 H Blood Pressure Location Lt brachial Position Sitting Pulse 78 Intake Visit Reasons: US guided Bx Rt breast 12 o'clock density Intake Note: Patient is seen in office for ultrasound guided biopsy consult, following right breast 12 o'clock density. 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 Present Accompanied by: Self / Same As Patient Allergies peanut Allergy (Unknown, Verified 02/26/24 12:59) itchy throat talc Allergy (Unknown, Verified 02/26/24 12:59) cough, itchy throat rosuvastatin Adverse Reaction (Unknown, Verified 02/26/24 12:59) myalgia Medication List - Last Reconciled 02/26/24 by Rommel Perez MD albuterol sulfate 2.5 mg (3 mL) inhalation Q4-6H PRN fluticasone propionate 50 mcg/actuation 1 spray intranasal DAILY lisinopril 5 mg PO DAILY magnesium oxide 400 mg PO DAILY montelukast 10 mg PO QPM nebulizer accessories As directed for updraft treatments pravastatin 80 mg PO BEDTIME Symbicort 160-4.5 mcg/actuation (budesonide-formoterol) 2 puffs PO QPM NS Ventolin HFA 90 mcg/actuation (albuterol sulfate) 2 puffs PO Q6H PRN NS HPI Comments Details: 63-year-old female patient presenting with a recent screening mammogram performed on 01/22/2024 with follow-up images and ultrasound performed on 02/15/2024 which revealed a suspicious mass in the 12:00 o'clock location 4 cm from the nipple of the right breast suspicious for malignancy (BI-RADS 4). She is scheduled for an ultrasound-guided core biopsy at the [facility] on 02/28/2024. She denies a previous history of breast biopsies or breast surgery. Her family history is negative for breast cancer or ovarian cancer. Her menarche was the age of 13. She has 3 children and breastfed her 1st child. She was 24 years old at the of her 1st child. Her last menstrual period was the age of 56. She denies using hormone replacement. None of her immediate family has undergone genetic testing. She denies any breast pain, skin changes, palpable mass or discharge. [facility] Medical History Essential hypertension Former cigarette smoker Leg cramping Moderate persistent asthma Tubular adenoma of colon Right hip pain Generalized anxiety disorder Menopause Cervical cancer screening Mixed dyslipidemia Low vitamin D level Infliximab (Remicade) long-term use Medication monitoring encounter Surgical History History of colonoscopy History of colonoscopy History of esophagogastroduodenoscopy (EGD) Family History Father CVD (cardiovascular disease) Hyperlipidemia Myocardial infarction Mother HTN (hypertension) Substance use disorder Mental health disorder Brother Depression Mental health disorder Paternal Aunt Myocardial infarction Sister Mental health disorder Son No problems noted. Son No problems noted. Daughter No problems noted. 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 [employer] Cognitive needs: No Hearing needs: No Vision needs: Yes Female Reproductive History Menstrual Age of Menarche: 13 Age of menopause: 56 Total pregnancies: 3 Number of Living Children: 3 Review of Systems Const All systems reviewed & are unremarkable except as noted in HPI and below Physical Exam Const General: cooperative and no acute distress Nutritional Appearance: well nourished Orientation/consciousness: patient oriented x3 Limitations: no limitations HEENT Head: Yes normocephalic and Yes atraumatic Ears: hearing grossly normal bilaterally Chest Other: Left breast: No skin change, no nipple retraction, no nipple discharge, no palpable mass, no enlarged lymph nodes. Right breast: No skin change, no nipple retraction, no nipple discharge, no palpable mass, no enlarged lymph nodes Resp Effort & Inspection: normal respiratory effort, no audible wheezes, no cough and no respiratory distress Cardio Jugular venous distension: no JVD GI Inspection: Yes normal to inspection Skin Other: Warm, dry, no rash Neuro General: patient oriented x3 Extrem General: Yes no clubbing, cyanosis or edema Results Reviewed Results Reviewed: Mammogram and ultrasound: Assessment & Plan Assessment & Plan (1) Abnormal mammogram of right breast: Code(s): R92.8 - Other abnormal and inconclusive findings on diagnostic imaging of breast Category: Medical (2) Abnormal ultrasound of breast: Code(s): R92.8 - Other abnormal and inconclusive findings on diagnostic imaging of breast Category: Medical Plan 63-year-old female patient presenting with a recent mammogram and ultrasound which revealed an abnormal density in the right breast at the 12 o'clock position, 4 cm from the nipple felt to be suspicious for malignancy. She is scheduled for an ultrasound-guided core biopsy at the [facility] on 02/28/2024. On examination no palpable mass is appreciated and no enlarged lymph nodes are palpable. The patient's Tyrer-Cuzick remaining lifetime risk of breast cancer 7.2%. I recommended she return in approximately 1 week to review the pathology results and discuss treatment options as necessary. She expressed understanding and agrees with the plan. Coding Level of Care Code New Pt Level 4 (37684) Diagnoses Abnormal mammogram of right breast R92.8 Abnormal ultrasound of breast R92.8
[2024-02-26 13:08] VITALS: BP 171/79; PULSE 78; BMI 29.4
== END 2024-02-26 13:23 | disposition home or self-care (01) ==
PROVIDERS: PCP Internal Medicine; Visit Provider Surgery
DX: R92.8 Other abnormal and inconclusive findings on diagnostic imaging of breast (principal)
CPT/HCPCS: 99204

== ENCOUNTER → 2024-02-26 12:37 | Outpatient (BNVA) | payer OTHER, SELFPAY | PROVIDERS: PCP Internal Medicine; Visit Provider Surgery | DX: R92.8 Other abnormal and inconclusive findings on diagnostic imaging of breast (principal) | CPT/HCPCS: 99202 ==

== ENCOUNTER 2024-02-28 08:39 | Outpatient (REF) | payer OTHER, SELFPAY ==
--- NOTE | ~2024-02-28 | MM_ITS ---
Addendum: Right breast 12:00 mass ultrasound guided core needle biopsy: Benign breast tissue with dense stromal fibrosis chronic inflammation focal fat necrosis focal dystrophic calcifications cholesterol clefts and foamy macrophages no atypia or malignancy identified. Results are benign and concordant. Recommend six-month follow-up right breast ultrasound and right breast mammogram for further evaluation of the other 2 areas described below. PROCEDURE: ULTRASOUND-GUIDED RIGHT BREAST BIOPSY CLINICAL INFORMATION: Solid mass in the right breast at 12:00 4 cm from the nipple. COMPARISON: Comparison is made with available prior exams. TECHNIQUE: The details of the procedure, as well as the risks, benefits, and alternatives to the procedure were explained to the patient in detail and all of her questions were answered, after which, written informed consent was obtained. PROCEDURE: Prior to the procedure, sonography revealed a solid mass at 12:00 4 7 m from the nipple. A time-out was performed, the lesion intended for biopsy was targeted and the skin of the right breast was then prepped and draped in the usual sterile fashion. Using sonographic guidance, sterile technique, and 1% lidocaine without epinephrine for local anesthesia, a total of 6 cores were obtained through the targeted area with a 14-gauge biopsy device. At the completion of tissue sampling, a single open coil metallic clip was deposited at the biopsy site. An appropriate sample was obtained. The postprocedure 2-view direct digital mammogram reveals satisfactory positioning of the biopsy clip. The patient tolerated the procedure well and, after assuring adequate hemostasis, was discharged in good condition after reviewing postbiopsy breast care instructions. Final pathology results are pending. MM/MM tomosynthesis diagnostic RT IMPRESSION: 1. Uncomplicated sonographically-guided core biopsy of the right breast. The 2-view direct digital postprocedure mammogram reveals satisfactory positioning of the biopsy clip. 2. Final pathology results are pending. A separate report with final recommendations will be issued once these results are made available. 3. Recommend 6 month follow-up for asymmetry in the superior right breast on MLO view posterior depth and solid mass versus complicated cyst at 12:00 3 cm from the nipple on ultrasound. Electronically signed by: Ana Kaur DO 03/03/2024 09:15 AM [facility]
[2024-02-28] MEDS: Sodium Bicarbonate 8.4% 50 MEQ/50 ML VIAL SUBCUT (09:56)
[2024-02-28] MEDS: Lidocaine HCl 1 % 20 ML VIAL 9 ML SUBCUT (09:57)
== END 2024-02-28 08:40 | disposition home or self-care (01) ==
LOC: HO.MAMMO 08:39
PROVIDERS: PCP Internal Medicine; Visit Provider Surgery
DX: N63.11 Unspecified lump in the right breast, upper outer quadrant (principal); R92.8 Other abnormal and inconclusive findings on diagnostic imaging of breast; R92.1 Mammographic calcification found on diagnostic imaging of breast; N64.1 Fat necrosis of breast
CPT/HCPCS: 19083; 77061; 77065; 88305; A4648; C1894; J2003

== ENCOUNTER → 2024-02-28 09:00 | Outpatient (BNV) | payer OTHER, SELFPAY | PROVIDERS: PCP Internal Medicine; Visit Provider Internal Medicine | DX: N63.11 Unspecified lump in the right breast, upper outer quadrant (principal) | CPT/HCPCS: 19083; 77065 ==

== ENCOUNTER 2024-03-06 14:31 | Outpatient (AMB) | payer OTHER, SELFPAY ==
--- NOTE | 2024-03-06 14:39 | MHC.OFFVIS ---
Vital Signs 03/06/24 14:43 Height 52 ft Weight 160 lb 14.999 oz BMI 0.3 Intake Visit Reasons: US guided Bx RESULTS Rt breast 12 o'clock density Intake Note: Patient is seen in office for u/s guided bx RESULTS, following right breast 12 o'clock density. 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 Required: No Accompanied by: Self / Same As Patient Allergies peanut Allergy (Unknown, Verified 03/06/24 14:43) itchy throat talc Allergy (Unknown, Verified 03/06/24 14:43) cough, itchy throat rosuvastatin Adverse Reaction (Unknown, Verified 03/06/24 14:43) myalgia Medication List - Last Reconciled 03/06/24 by Rommel Perez MD albuterol sulfate 2.5 mg (3 mL) inhalation Q4-6H PRN fluticasone propionate 50 mcg/actuation 1 spray intranasal DAILY lisinopril 5 mg PO DAILY magnesium oxide 400 mg PO DAILY montelukast 10 mg PO QPM nebulizer accessories As directed for updraft treatments pravastatin 80 mg PO BEDTIME Symbicort 160-4.5 mcg/actuation (budesonide-formoterol) 2 puffs PO QPM NS Ventolin HFA 90 mcg/actuation (albuterol sulfate) 2 puffs PO Q6H PRN NS HPI Comments Details: 63-year-old female patient presenting with a recent screening mammogram performed on 01/22/2024 with follow-up images and ultrasound performed on 02/15/2024 which revealed a suspicious mass in the 12:00 o'clock location 4 cm from the nipple of the right breast suspicious for malignancy (BI-RADS 4). She underwent an ultrasound-guided core biopsy at the [facility] on 02/28/2024. She denies a previous history of breast biopsies or breast surgery. Her family history is negative for breast cancer or ovarian cancer. Her menarche was the age of 13. She has 3 children and breastfed her 1st child. She was 24 years old at the of her 1st child. Her last menstrual period was the age of 56. She denies using hormone replacement. None of her immediate family has undergone genetic testing. She denies any breast pain, skin changes, palpable mass or discharge. She returns today to review the pathology results. Pathology revealed benign breast tissue with dense stromal fibrosis. Radiology is recommending a repeat right breast mammogram and ultrasound in 6 months. [facility] Medical History Essential hypertension Former cigarette smoker Leg cramping Moderate persistent asthma Tubular adenoma of colon Right hip pain Generalized anxiety disorder Menopause Cervical cancer screening Mixed dyslipidemia Low vitamin D level Infliximab (Remicade) long-term use Medication monitoring encounter Surgical History History of colonoscopy History of colonoscopy History of esophagogastroduodenoscopy (EGD) Family History Father CVD (cardiovascular disease) Hyperlipidemia Myocardial infarction Mother HTN (hypertension) Substance use disorder Mental health disorder Brother Depression Mental health disorder Paternal Aunt Myocardial infarction Sister Mental health disorder Son No problems noted. Son No problems noted. Daughter No problems noted. 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[employer] Cognitive needs: No Hearing needs: No Vision needs: Yes Female Reproductive History Menstrual Age of Menarche: 13 Review of Systems Const All systems reviewed & are unremarkable except as noted in HPI and below Physical Exam Vital Signs: BMI result Body Mass Index 0.3 Const General: cooperative and no acute distress Nutritional Appearance: well nourished Orientation/consciousness: patient oriented x3 Limitations: no limitations HEENT Head: Yes normocephalic and Yes atraumatic Ears: hearing grossly normal bilaterally Chest Other: Exam deferred Resp Effort & Inspection: normal respiratory effort, no audible wheezes, no cough and no respiratory distress Cardio Jugular venous distension: no JVD GI Inspection: Yes normal to inspection Skin Other: Warm, dry, no rash Neuro General: patient oriented x3 Extrem General: Yes no clubbing, cyanosis or edema Assessment & Plan Assessment & Plan (1) Abnormal mammogram of right breast: Code(s): R92.8 - Other abnormal and inconclusive findings on diagnostic imaging of breast Category: Medical (2) Abnormal ultrasound of breast: Code(s): R92.8 - Other abnormal and inconclusive findings on diagnostic imaging of breast Category: Medical Plan 63-year-old female patient status post right breast ultrasound-guided core biopsy which revealed benign breast tissue. She tolerated the procedure well and denies any ongoing breast symptoms. She was informed of the pathology findings and a copy of the report was provided to the patient. A repeat right breast mammogram and ultrasound have been requested for 6 months. Further follow-up will be based on radiologic studies. Orders: Orders MM diagnostic mammo unilat RT 08/27/24 R92.8 - Other abnormal and inconclusive findings on diagnostic imaging of breast US breast RT limited 08/27/24 R92.8 - Other abnormal and inconclusive findings on diagnostic imaging of breast Coding Level of Care Code Est Pt Level 3 (27853) Diagnoses Abnormal mammogram of right breast R92.8 Abnormal ultrasound of breast R92.8
== END 2024-03-06 14:58 | disposition home or self-care (01) ==
PROVIDERS: PCP Internal Medicine; Visit Provider Surgery
DX: R92.8 Other abnormal and inconclusive findings on diagnostic imaging of breast (principal)
CPT/HCPCS: 99213

== ENCOUNTER → 2024-03-06 14:31 | Outpatient (BNVA) | payer OTHER, SELFPAY | PROVIDERS: PCP Internal Medicine; Visit Provider Surgery | DX: R92.8 Other abnormal and inconclusive findings on diagnostic imaging of breast (principal) | CPT/HCPCS: 99212 ==

== ENCOUNTER 2024-04-02 07:43 | Outpatient (AMB) | payer OTHER, SELFPAY ==
[2024-04-02 08:01] VITALS: BP 132/62; PULSE 92; RESP 16; TEMP 36.6; O2SAT 97; BMI 30.2
--- NOTE | 2024-04-02 08:01 | MHC.PC.OV ---
Vital Signs 04/02/24 08:01 Height 5 ft 2 in Weight 165 lb BMI 30.2 BP 132/62 Blood Pressure Location Rt brachial Position Sitting Respiration 16 Pulse 92 Pulse Source Pulse Oximeter Temp 97.8 F Temp Source Oral Pulse Oximetry (%) 97 Oxygen Delivery Method Room Air Intake Visit Reasons: 3 months follow up Intake Note: Pt is here today for her 3mo. f/u Allergies peanut Allergy (Unknown, Verified 04/02/24 08:23) itchy throat talc Allergy (Unknown, Verified 04/02/24 08:23) cough, itchy throat rosuvastatin Adverse Reaction (Unknown, Verified 04/02/24 08:23) myalgia Medication List - Last Reconciled 04/02/24 by Afsaneh Harley MD albuterol sulfate 2.5 mg (3 mL) inhalation Q4-6H PRN fluticasone propionate 50 mcg/actuation 1 spray intranasal DAILY lisinopril 5 mg PO DAILY magnesium oxide 400 mg PO DAILY montelukast 10 mg PO QPM nebulizer accessories As directed for updraft treatments pravastatin 80 mg PO BEDTIME Symbicort 160-4.5 mcg/actuation (budesonide-formoterol) 2 puffs PO QPM NS Ventolin HFA 90 mcg/actuation (albuterol sulfate) 2 puffs PO Q6H PRN NS Tobacco use date assessed: 04/02/24 Dental Screening Dental Screen Date: 04/02/24 Did you have a dental visit in the last 12 months?: No Did you have a dental problem in the last 6 months where you did not have access to dental care?: No Was dental information given to patient?: Patient has dentist HPI 3 months follow up HPI Details 64 year-old lady with a history of moderate persistent asthma, history of adenomatous polyp of colon, generalized anxiety disorder, mixed dyslipidemia, and ulcerative colitis, here today for follow-up visit. Patient states that she stopped smoking 4 months ago with the help of varenicline, which she only took for 1 month and was able to quit smoking completely.. Breathing is better, , compliant with taking her medications, rarely needing to use her albuterol inhaler Blood pressure stable and controlled on lisinopril 5 mg taken daily Has hyperlipidemia, just started taking again pravastatin a week ago. Complains of pain on lateral aspect of her left ankle, which has been present now for at least 4 months. Will be retiring from her work at [employer] in May as she states ankles bothering her and started swelling up towards the end of the day. She has been massaging diclofenac gel which affords relief, resting of joint also helps She had an abnormal mammogram earlier this year and had a breast ultrasound biopsy which came back with benign findings, has a repeat mammogram and ultrasound scheduled in six-months. COUNTS INCLUDE 234 BEDS AT THE [facility] Medical History Essential hypertension Former cigarette smoker Leg cramping Moderate persistent asthma Tubular adenoma of colon Right hip pain Generalized anxiety disorder Menopause Cervical cancer screening Mixed dyslipidemia Low vitamin D level Infliximab (Remicade) long-term use Medication monitoring encounter Surgical History History of colonoscopy History of colonoscopy History of esophagogastroduodenoscopy (EGD) Family History Father CVD (cardiovascular disease) Hyperlipidemia Myocardial infarction Mother HTN (hypertension) Substance use disorder Mental health disorder Brother Depression Mental health disorder Paternal Aunt Myocardial infarction Sister Mental health disorder Son No problems noted. Son No problems noted. Daughter No problems noted. 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 1. Little interest or pleasure in doing things: not at all 2. Feeling down, depressed, or hopeless: not at all 3. Trouble falling or staying asleep, or sleeping too much: not at all 4. Feeling tired or having little energy: not at all 5. Poor appetite or overeating: not at all 6. Feeling bad about yourself - or that you are a failure or have let yourself or your family down: not at all 7. Trouble concentrating on things, such as reading the newspaper or watching television: not at all 8. Moving or speaking so slowly that other people could have noticed. Or the opposite - being so fidgety or restless that you have been moving around a lot more than usual: not at all 9. Thoughts that you would be better off or of hurting yourself in some way: not at all Total score: 0 Depression Screening Interpretation: Negative Depression Screening Done: Yes 49896 - PHQ-9 Billing: Yes Source: Developed by Drs. Nj Machuca, Tracey Givens, Raul Robbins and colleagues, with an educational spencer from [employer]. Thrive Questionnaire Date Thrive assessed: 03/26/24 I am a: Patient What is your living situation today?: I have a steady place to live Within the past 12 months, did the food you bought not last and you didn't have the money to get more?: Never true Within the past 12 months, did you worry whether your food would run out before you got money to buy more?: Often true Do you have trouble paying for medicines?: No Do you have trouble getting transportation to medical appointments?: No Do you have trouble paying your heating and electricity bill?: No Do you have trouble taking care of your child, family member or friend?: No Do you have trouble with day-to-day activities such as bathing, preparing meals, shopping, managing finances, etc.?: No Are you currently unemployed and looking for a job?: No Are you interested in more education?: No Please select the resources that you would like help with: None Currently or been in a relationship where the following occur: No concerns reported THRIVE Score: 1 AUDIT C Alcohol Use Questionnaire (AUDIT-C) 1. How often do you have a drink containing alcohol?: Never 3. How often do you have six or more drinks on one occasion?: Never Total Score: 0 ZULAY-7 AMB Questionnaire ZULAY-7 Date ZULAY - 7 assessed: 04/02/24 Feeling nervous, anxious, or on edge: 0 = Not at all Not being able to stop or control worryin = Not at all Worrying too much about different things: 0 = Not at all Trouble relaxin = Not at all Being so restless that it is hard to sit still: 0 = Not at all Becoming easily annoyed or irritable: 0 = Not at all Feeling afraid as if something awful might happen: 0 = Not at all Total ZULAY-7 score (0-4 normal; 5-9 mild; 10-14 moderate; 15-21 severe): 0 Source: Developed by Drs. Nj Machuca, Tracey Givens, Raul Robbins and colleagues, with an educational spencer from [employer]. ZULAY-7 Assessment Billing ZULAY-7 Assessment Tool: ZULAY-7 Assessment 53725 Review of Systems Const Denies fatigue, Denies headache(s) and Denies weakness Eyes Denies change in vision ENT Denies dizziness, Denies headache(s) and Denies sore throat Card Denies chest pain, Denies lightheadedness and Denies palpitations Resp Denies chest congestion GI Denies abdominal pain, Denies melena, Denies bloating, Denies hematochezia, Denies change in bowel habits and Denies heartburn Denies hematuria, Denies urinary frequency, Denies dysuria, Denies prolapse symptoms, Denies urinary incontinence and Denies urinary urgency Musc Reports no additional complaints Skin/Breast Denies breast swelling, Denies breast pain, Denies breast mass, Denies lesions and Denies rash Neuro Denies dizziness, Denies headache(s) and Denies weakness Psych Reports no additional complaints Endo Denies fatigue, Denies polydipsia, Denies polyuria and Denies palpitations Clarke/Lymph Denies easy bruising Aller/Immun Denies seasonal rhinorrhea Physical exam (Primary Care) Vital Signs: Last Vital Signs Temp 97.8 F 04/02/24 08:01 Pulse 92 04/02/24 08:01 Resp 16 04/02/24 08:01 BP 132/62 04/02/24 08:01 Pulse Ox 97 04/02/24 08:01 Oxygen Delivery Method Room Air 04/02/24 08:01 BMI result Body Mass Index 30.2 Tobacco/Smoking Status: Tobacco use Status Tobacco use date assessed 04/02/24 04/02/24 08:12 Patient Tobacco Use Status Former Tobacco user 04/02/24 08:02 Tobacco use type Cigarette 04/02/24 08:02 e-Cigarette/Vaping Use Never Used 04/02/24 08:02 PHQ-9: PHQ-9 Score PHQ-9: Total score 0 04/02/24 08:26 Depression Screening Interpretation: Negative Thrive Assessment: Date of Thrive Assessment Date Thrive assessed 03/26/24 04/02/24 08:02 Currently or been in a relationship where the following occur: No concerns reported Const Other: Alert oriented x3, no acute distress noted ambulatory with normal gait Orientation/consciousness: patient oriented x3 HENMT Head: Yes normocephalic Ears: external ears normal General nose exam: Normal external nose present Face and sinus: Yes face symmetric Mouth: Normal oral and palatal mucosa present and moist mucous membranes Eyes General: appearance normal, both eyes and all related structures Neck Neck: Yes full ROM, Yes no lymphadenopathy and Yes supple Resp Effort & Inspection: normal respiratory effort and able to speak in complete sentences Auscultation: clear to auscultation bilaterally Cardio Other: S1-S2 present regular rate and rhythm GI Inspection: Yes normal to inspection Palpation (GI): Soft to palpation, nontender, no guarding and no masses Auscultation: normal bowel sounds General: Yes no CVA tenderness Back/Spine/Pelvis Back: no CVA tenderness and No back tenderness Skin General skin exam: no rashes or lesions noted Neuro General: patient oriented x3, gait normal, tone normal, moves all extremities, Normal light touch and pain sensation, no focal motor deficits, CN's II-XI intact bilaterally and normal sensation to monofilament Extrem Other: No gross bone deformity or joint swelling seen, General: Yes full ROM, Yes no joint enlargement, Yes no clubbing, cyanosis or edema, Yes no calf tenderness and Yes normal gait Psych Appearance: grossly normal and well kempt Mental Status: mental status grossly normal Speech and movement: Normal speech and movement present Affect: normal affect Attitude: cooperative Thought process: Normal thought process present Thought content: Normal thought content present Coding Level of Care Code Est Pt Level 4 (67454) Complex EM visit Add On G2211 Diagnoses Essential hypertension I10 Moderate persistent asthma without complication J45.40 Asthma complication type: uncomplicated Tubular adenoma of colon D12.6 Mixed dyslipidemia E78.2 Additional Codes ZULAY-7 Assessment Billing - ZULAY-7 Assessment Tool: ZULAY-7 Assessment 04290 ([id number]) PHQ-9 - 33162 - PHQ-9 Billing: Yes ([id number]) Assessment & Plan Assessment & Plan (1) Essential hypertension: Code(s): I10 - Essential (primary) hypertension Category: Medical Plan: Blood pressure at goal of less than 130/80. Continue with current medication. Reinforced importance of following a low sodium diet, getting regular exercise, and lowering stress levels. (2) Moderate persistent asthma: Code(s): J45.40 - Moderate persistent asthma, uncomplicated Category: Medical Qualifiers: Asthma complication type: uncomplicated Qualified Code(s): J45.40 - Moderate persistent asthma, uncomplicated Plan: Stable controlled on present treatment, continued on Symbicort and albuterol taken as needed for episodes of bronchospasm and wheezing. Up-to-date with her flu vaccine, COVID booster, pneumonia vaccine and shingles vaccination. Recommended to get RSV vaccination which she has available to pharmacy. (3) Tubular adenoma of colon: Code(s): D12.6 - Benign neoplasm of colon, unspecified Category: Medical Plan: She is overdue for her repeat colonoscopy screening, has already an appointment scheduled with [facility] for colonoscopy (4) Mixed dyslipidemia: Code(s): E78.2 - Mixed hyperlipidemia Category: Medical Plan: Fasting lipids ordered, continue on pravastatin 80 mg at bedtime, just started taking it a week ago adherence to healthy eating habits and regular exercise strongly recommended
== END 2024-04-02 08:57 | disposition home or self-care (01) ==
PROVIDERS: PCP Internal Medicine; Visit Provider Internal Medicine
DX: I10 Essential (primary) hypertension (principal); J45.40 Moderate persistent asthma, uncomplicated; D12.6 Benign neoplasm of colon, unspecified; E78.2 Mixed hyperlipidemia

== ENCOUNTER → 2024-04-02 07:43 | Outpatient (BNVA) | payer OTHER, SELFPAY | PROVIDERS: PCP Internal Medicine; Visit Provider Internal Medicine | DX: I10 Essential (primary) hypertension (principal); J45.40 Moderate persistent asthma, uncomplicated; D12.6 Benign neoplasm of colon, unspecified; E78.2 Mixed hyperlipidemia | CPT/HCPCS: 96127; 99212 ==

== ENCOUNTER 2024-04-07 07:49 | Outpatient (AMB) | payer OTHER, SELFPAY ==
--- NOTE | 2024-04-07 09:00 | A.OFFVIS_ITS ---
Intake Visit Reasons: Due For [place] Allergies peanut Allergy (Unknown, Verified 04/02/24 08:23) itchy throat talc Allergy (Unknown, Verified 04/02/24 08:23) cough, itchy throat rosuvastatin Adverse Reaction (Unknown, Verified 04/02/24 08:23) myalgia HPI HPI Due For [place]: Details: 64 y/o female who I am calling for f/u for ulcerative colitis. recap: she had been following with Dr Mark Dx with UC 2015 commenced remicade around 5-6 yrs ago and she really wants to stop now she has been clinical remission for about 3 yrs she denies abdo pain no diarrhea she passes stool once daily, looks normal, no blood appetite is good trying to lose not had steroids since her index presentation 2014 or so She denies any fevers, chills, shortness of breath, chest pain, and palpitations last dose remicae 06/2020 Last colonoscopy 2018- tubular adenoma remove,d no active colitis on bx, scarring was noted Last labs 01/2020--nml, calprotectin 2018-- 53 She got lost to follow up was supposed to get colonoscopy INTERIM: she feels wonderful no blood in stool no abdominal pain no nausea no vomiting appetite is good no diarrhea she quit smoking 4 months EXAM: GENERAL: The patient is well developed and nontoxic. talking easily a/P: UC in clinical, pathological and biological remission -- PLAN: 1/ repeat colonoscopy now with suprep 2/ PCP has ordered routine labs for her so will hold [facility] Medical History Essential hypertension Former cigarette smoker Leg cramping Moderate persistent asthma Tubular adenoma of colon Right hip pain Generalized anxiety disorder Menopause Cervical cancer screening Mixed dyslipidemia Low vitamin D level Infliximab (Remicade) long-term use Medication monitoring encounter Surgical History History of colonoscopy History of colonoscopy History of esophagogastroduodenoscopy (EGD) Family History Father CVD (cardiovascular disease) Hyperlipidemia Myocardial infarction Mother HTN (hypertension) Substance use disorder Mental health disorder Brother Depression Mental health disorder Paternal Aunt Myocardial infarction Sister Mental health disorder Son No problems noted. Son No problems noted. Daughter No problems noted. 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 [employer] Cognitive needs: No Hearing needs: No Vision needs: Yes Female Reproductive History Menstrual Age of Menarche: 13 Telehealth Telehealth Telehealth Platform: [employer] Location of provider rendering services: practice address Location of patient: address on file Patient Identification confirmed using: Name, : Yes Telehealth method: video Patient verbally consented to treatment: Yes Patient verbally consented to billing insurance company: Yes Patient informed of any privacy concerns related to visit: Yes Minutes spent on Phone/Video with Pt.: 5 Assessment & Plan Assessment & Plan (1) Ulcerative colitis without complications: Code(s): K51.90 - Ulcerative colitis, unspecified, without complications Category: Medical Plan: as above Coding Level of Care Code Tele Est Pt Level 3 (72143) Diagnoses Ulcerative colitis without complications K51.90
== END 2024-04-07 10:23 | disposition home or self-care (01) ==
LOC: HO.HGI 07:49
PROVIDERS: PCP Internal Medicine; Visit Provider Internal Medicine Gastroenterology
DX: K51.90 Ulcerative colitis, unspecified, without complications (principal)
CPT/HCPCS: 99213

== ENCOUNTER → 2024-04-07 07:49 | Outpatient (BNVA) | payer OTHER, SELFPAY | PROVIDERS: PCP Internal Medicine; Visit Provider Internal Medicine Gastroenterology ==

== ENCOUNTER 2024-05-01 07:54 | Outpatient (REF) | payer OTHER, SELFPAY ==
[2024-05-01 10:40] LABS: Alanine Aminotransferase 24 U/L (0-31); Aspartate Amino Transferase 25 U/L (5-31); Cholesterol 206 mg/dL (<200); HDL Cholesterol 53 mg/dL (>40); LDL Cholesterol Calculated 117 mg/dL (<100); Triglycerides 184 mg/dL (<150)
[2024-05-01 10:59] LABS: Vitamin D 25-OH Total 69.7 ng/mL (>30)
== END 2024-05-01 07:55 | disposition home or self-care (01) ==
LOC: HO.HMGCLDS 07:54
PROVIDERS: PCP Internal Medicine; Visit Provider Internal Medicine
DX: I10 Essential (primary) hypertension (principal); E78.2 Mixed hyperlipidemia; R79.89 Other specified abnormal findings of blood chemistry; F41.1 Generalized anxiety disorder; D12.6 Benign neoplasm of colon, unspecified; J45.40 Moderate persistent asthma, uncomplicated; Z12.4 Encounter for screening for malignant neoplasm of cervix
CPT/HCPCS: 36415; 80061; 82306; 84450; 84460

== ENCOUNTER 2024-06-18 07:00 | Day surgery (SDC) | payer OTHER, SELFPAY ==
[2024-06-16 12:40] VITALS: BMI 30.2
--- NOTE | 2024-06-17 09:43 | HO.ANESPROP2 ---
Documented by User: Louise Staples NP 06/17/24 09:45 HPI - Anesthesia Eval Consult details Narrative: 64yo F for Colonoscopy PMFSH Active Problems Active Problems: All Active Problems Cervical cancer screening (Acute) Ulcerative colitis without complications (Acute) Essential hypertension (Acute) Former cigarette smoker (Acute) Leg cramping (Acute) Moderate persistent asthma (Acute) Tubular adenoma of colon (Acute) Generalized anxiety disorder (Acute) Mixed dyslipidemia (Acute) Low vitamin D level (Acute) Past Medical History Medical History Ulcerative colitis Essential hypertension Former cigarette smoker Leg cramping Moderate persistent asthma Tubular adenoma of colon Right hip pain Generalized anxiety disorder Menopause Mixed dyslipidemia Low vitamin D level Infliximab (Remicade) long-term use Family History Family History Father CVD (cardiovascular disease) Hyperlipidemia Myocardial infarction Mother HTN (hypertension) Substance use disorder Mental health disorder Brother Depression Mental health disorder Paternal Aunt Myocardial infarction Sister Mental health disorder Son No problems noted. Son No problems noted. Daughter No problems noted. Surgical History Surgical History History of colonoscopy History of esophagogastroduodenoscopy (EGD) Social History Social History Household Members: Friend(s) Household Members Other:: lives alson Housing: House Are you a primary home care specialist to a significant other at home: No Do you presently have visiting nurse or other home services: No Alcohol intake: never Patient Tobacco Use Status: Former Tobacco user Tobacco use type: Cigarette Cigarettes Per Day: 15 e-Cigarette/Vaping Use: Never Used Use of substances other than those prescribed or required for medical reasons: No Have you been hit, kicked, punched, or otherwise hurt by someone within the past year? If so, by whom?: No Are you DNR?: No Advance Directives: No Advance Directives Information Provided: Yes Patient : No Current occupational status: employed Current occupation: [employer], and works at [employer] Cognitive needs: No Hearing needs: No Vision needs: Yes Meds Allergies Allergy/AdvReac Type Severity Reaction Status Date / Time peanut Allergy Intermediate itchy Verified 06/16/24 12:40 throat talc Allergy Intermediate cough, Verified 06/16/24 12:40 itchy throat rosuvastatin AdvReac Intermediate myalgia Verified 06/16/24 12:40 Home Medications ?Medication ?Instructions ?Recorded ?Confirmed ?Last Taken ?Type cholecalciferol (vitamin D3) 1,250 1,250 mcg PO QWEEK 04/07/24 06/16/24 Unknown History mcg (50,000 unit) capsule magnesium oxide 400 mg PO DAILY 04/07/24 06/16/24 Unknown History Exam Height,Weight and Vital Signs: Height 5 ft 2 in Weight 74.843 kg Assessment and Plan Assessment Anesthesia Assessment: Chart Reviewed Documented by User: Jj Pemberton MD 06/18/24 08:59 PMFSH Past Medical History Medical History Ulcerative colitis Essential hypertension Former cigarette smoker Leg cramping Moderate persistent asthma Tubular adenoma of colon Right hip pain Generalized anxiety disorder Menopause Mixed dyslipidemia Low vitamin D level Infliximab (Remicade) long-term use Family History Family History Father CVD (cardiovascular disease) Hyperlipidemia Myocardial infarction Mother HTN (hypertension) Substance use disorder Mental health disorder Brother Depression Mental health disorder Paternal Aunt Myocardial infarction Sister Mental health disorder Son No problems noted. Son No problems noted. Daughter No problems noted. Family history of problems with anesthesia: No Surgical History Surgical History History of colonoscopy History of esophagogastroduodenoscopy (EGD) History of Problems with Anesthesia: No Social History Social History Household Members: Friend(s) Household Members Other:: lives alson Housing: House Are you a primary home care specialist to a significant other at home: No Do you presently have visiting nurse or other home services: No Alcohol intake: never Patient Tobacco Use Status: Former Tobacco user Tobacco use type: Cigarette Cigarettes Per Day: 15 e-Cigarette/Vaping Use: Never Used Use of substances other than those prescribed or required for medical reasons: No Have you been hit, kicked, punched, or otherwise hurt by someone within the past year? If so, by whom?: No Are you DNR?: No Advance Directives: No Advance Directives Information Provided: Yes Patient : No Current occupational status: employed Current occupation: [employer], and works at [employer] Cognitive needs: No Hearing needs: No Vision needs: Yes Meds Allergies Allergy/AdvReac Type Severity Reaction Status Date / Time peanut Allergy Intermediate itchy Verified 06/16/24 12:40 throat talc Allergy Intermediate cough, Verified 06/16/24 12:40 itchy throat rosuvastatin AdvReac Intermediate myalgia Verified 06/16/24 12:40 Home Medications ?Medication ?Instructions ?Recorded ?Confirmed ?Last Taken ?Type cholecalciferol (vitamin D3) 1,250 1,250 mcg PO QWEEK 04/07/24 06/16/24 Unknown History mcg (50,000 unit) capsule magnesium oxide 400 mg PO DAILY 04/07/24 06/16/24 Unknown History Exam Airway Mallampati Class: III TM Dist: >3cm Neck ROM: Full Assessment and Plan Assessment Anesthesia Assessment: Anesthesia Plan Discussed Final Anesthetic Review Family History of Problems with Anesthesia: No History of Problems with Anesthesia: No NPO: Yes ASA Class: II Final Preanesthetic Review: No Changes in Pt Med Stat, Meds/Allgs Chart Reviewed, Consent Obtained/Reviewed and Anes Risks/Benef Reviewed Patient Risk: Intermediate Procedure Risk: Low Anesthetic Plan Anesthetic Plan: TIVA Disposition: Standard PACU
[2024-06-18 07:32] VITALS: BMI 31.1
[2024-06-18 07:37] VITALS: BP 133/80; PULSE 76; RESP 16; TEMP 37.2; O2SAT 95
[2024-06-18] MEDS: Lactated Ringers 1,000 ML 100 ML IVCONT (07:49)
--- NOTE | 2024-06-18 08:36 | MHC.SHP ---
Pre-Procedural Eval Section A - 24 Hr Update-Section A only Date of Service: 06/18/24 Section B - Complete if H&P > 30 days Chief Complaint: screening Relevant Family History (Specify if Yes): No Relevant Social History: None Present Medications: see Short Stay Collaborative assessment Medical History: Significant History (Ulcerative colitis Essential hypertension Former cigarette smoker Leg cramping Moderate persistent asthma Tubular adenoma of colon Right hip pain Generalized anxiety disorder Menopause Mixed dyslipidemia Low vitamin D level Infliximab (Remicade) long-term use) History of Previous Operations: Relevant previous surgery/procedure and date(s) (History of colonoscopy History of esophagogastroduodenoscopy (EGD)) Allergies: Allergies Allergy/AdvReac Type Severity Reaction Status Date / Time peanut Allergy Intermediate itchy Verified 06/16/24 12:40 throat talc Allergy Intermediate cough, Verified 06/16/24 12:40 itchy throat rosuvastatin AdvReac Intermediate myalgia Verified 06/16/24 12:40 Review of Systems Sugical H&P ROS: Negative: Constitution, Cardiovascular, Respiratory, Neurological, Psychiatric, Hem-Onc, Allergic/Immunologic, Gastrointestinal, Genitourinary, Musculoskeletal, Integumentary, Endocrine and Eyes/Ears/Nose/Throat Exam Surgical H&P Exam: Normal: HEENT, Normal: Heart, Normal: Lungs, Normal: Extremities, Normal: Abdomen, Normal: Skin and Normal: Neurological Plan Diagnosis/Plan: Unchanged I have reviewed the history and physical and performed a pertinent physical examination on my patient. No changes have occurred unless specified. Time Spent With Patient Time: Total time managing care of this patient today ____ minutes.
--- NOTE | 2024-06-18 09:16 | P.OPN-COLO_ITS ---
Colonoscopy Operative Note Operative Note Date of Service: 06/18/24 Narrative: Operative Information Procedure Description: Colonoscopy Indication: screening, hx of UC Anesthesia: MAC COLONOSCOPY Instrument: Olympus variable stiffness pediatric scope 190L Colonoscopy Monitoring: Vital signs and clinical assessment, continuous EKG monitoring, Pulse oximetry, Carbon Dioxide monitoring and blood pressure monitoring were done throughout the procedure. Colon withdrawal time was 15 minutes. Procedure: The patient was placed in the left lateral decubitis position and pre-procedure medications were administered. After a digital rectal examination of the ano-rectum, the video colonoscope was inserted into the rectum and advanced through the colon to the cecum/TI. The colonoscope was slowly withdrawn in a retrograde panoramic fashion and the colon mucosa was carefully examined including a retroflexed view of the rectum. Findings and interventions are described below. Procedure Difficulty: easy Findings: Terminal Ileum-normal, bx taken Cecum: micro abscesses with erythema and swelling, bx taken Ascending Colon: patchy erythema with micro abscesses, some slough noted Transverse Colon - patchy erythema Descending Colon: patchy erythema with pseudopolyps --some of these were removed with cold snare, bx taken as well Sigmoid Colon: patchy erythema with scarring and pseudopolyps, some of these were removed with cold snare, bx taken as well Rectum: Retroflexion with samll internal hemorrhoids seen, grade I, patchy erythema with scarring and pseudopolyps Anorectum - normal Intervention: cold forceps, cold snare Colon preparation: [place] Bowel Preparation Scale Right colon; 2 Transverse colon: 2 Left colon; 2 (0 = Unprepared colon segment with mucosa not seen due to solid stool that cannot be cleared. 1 = Portion of mucosa of the colon segment seen, but other areas of the colon segment not well seen due to staining, residual stool and/or opaque liquid. 2 = Minor amount of residual staining, small fragments of stool and/or opaque liquid, but mucosa of colon segment seen well. 3 = Entire mucosa of colon segment seen well with no residual staining, small fragments of stool or opaque liquid) Impression and Post Procedure Diagnosis: colitis pseudo polyps internal hemorrhoids Plan: High fiber diet leaflet Avoid straining at stool, epsom salts and sitz bath, anusol supps or cream Repeat Colonoscopy in 1-2 years or earlier if clinically indicated check infliximab levels and antibodies, change to entyvio potentially if CMV negative and no dysplasia etc Above findings were reviewed with the patient and relevant handouts were provided if indicated.
[2024-06-18 09:23] VITALS: BP 108/61; PULSE 86; RESP 16; TEMP 37; O2SAT 97
[2024-06-18 09:38] VITALS: BP 140/87; PULSE 79; RESP 20; TEMP 36.6; O2SAT 97
[2024-06-25 23:08] LABS: Lactoferrin, Fecal, Quant. 15.05 mcg/mL (<7.25)
== END 2024-06-18 10:02 | disposition home or self-care (01) ==
PROVIDERS: PCP Internal Medicine; Visit Provider Internal Medicine Gastroenterology
PROC: 0DJD8ZZ Inspection of Lower Intestinal Tract, Via Natural or Artificial Opening Endoscopic (ICD-10-PCS; CPT 45378; principal; 2024-06-18 08:30)
DX: Z12.11 Encounter for screening for malignant neoplasm of colon (principal); Z86.0101 Personal history of adenomatous and serrated colon polyps; K51.40 Inflammatory polyps of colon without complications; K51.90 Ulcerative colitis, unspecified, without complications; K63.0 Abscess of intestine; K64.0 First degree hemorrhoids; Z87.19 Personal history of other diseases of the digestive system; I10 Essential (primary) hypertension; E78.2 Mixed hyperlipidemia; E55.9 Vitamin D deficiency, unspecified; J45.40 Moderate persistent asthma, uncomplicated; R25.2 Cramp and spasm; F41.1 Generalized anxiety disorder; Z79.51 Long term (current) use of inhaled steroids; Z79.620 Long term (current) use of immunosuppressive biologic; Z79.899 Other long term (current) drug therapy; Z91.010 Allergy to peanuts; Z91.048 Other nonmedicinal substance allergy status; Z88.8 Allergy status to other drugs, medicaments and biological substances; Z87.891 Personal history of nicotine dependence
CPT/HCPCS: 45385; 45380; 83631; 88305; J2003; J2704

== ENCOUNTER → 2024-06-18 07:00 | Outpatient (BNV) | payer OTHER, SELFPAY | PROVIDERS: PCP Internal Medicine; Visit Provider Internal Medicine Gastroenterology | DX: Z12.11 Encounter for screening for malignant neoplasm of colon (principal); K52.9 Noninfective gastroenteritis and colitis, unspecified; K51.40 Inflammatory polyps of colon without complications; K64.0 First degree hemorrhoids | CPT/HCPCS: 45380; 45385 ==

== ENCOUNTER 2024-06-19 07:29 | Outpatient (REF) | payer SELFPAY ==
[2024-06-19 10:28] LABS: MANUAL DIFF FLAG NO
[2024-06-19 10:46] LABS: Basophils Percent Auto 0.2 % (0-2); Eosinophils Absolute Auto 0.1 X10*3/uL (0.0-0.4); Eosinophils Percent Auto 0.7 % (0-4); Hematocrit 43.8 % (37.0-47.0); Hemoglobin 14.1 g/dl (12.0-16.0); Imm Gran Abs Auto 0.05 X10*3/uL (0.00-0.03); Imm Gran Pct Auto 0.6 % (0.0-0.4); Lymphocytes Absolute Auto 1.7 X10*3/uL (1.2-4.9); Lymphocytes Percent Auto 20.8 % (20-40); Mean Corpuscular HGB Conc 32.2 g/dl (31.0-35.0); Mean Corpuscular Hemoglobin 29.7 pg (27.0-33.0); Mean Corpuscular Volume 92.4 fL (80.0-98.0); Mean Platelet Volume 10.4 fL (9.4-12.3); Monocytes Absolute Auto 0.6 X10*3/uL (0.1-1.2); Monocytes Percent Auto 6.8 % (2-11); Neutrophils Absolute Auto 5.9 x10*3/uL (2.0-8.3); Neutrophils Percent Auto 70.9 % (45-73); Platelet Count 324 X10*3/uL (160-400); Red Blood Count 4.74 X10*6/uL (4.20-5.50); Red Cell Distribution Width 15.2 % (11.0-16.0); White Blood Count 8.3 X10*3/uL (4.8-10.8)
[2024-06-19 11:05] LABS: Alanine Aminotransferase 24 U/L (0-31); Albumin Level 3.8 g/dL (3.5-5.0); Alkaline Phosphatase 55 U/L (39-117); Anion Gap 12 (12-20); Aspartate Amino Transferase 21 U/L (5-31); Bilirubin Total 0.4 mg/dL (0.0-1.0); Blood Urea Nitrogen 17 mg/dL (9-16); C Reactive Protein 1.65 mg/dL (< or = 0.50); Carbon Dioxide 26 mmol/L (22-29); Chloride 109 mmol/L (96-108); Estimated Glomerular Filt Rate 51; Glucose Random 98 mg/dL (60-115); Sodium 143 mmol/L (135-145); Total Protein 7.1 g/dL (6.5-8.0)
[2024-06-19 11:17] LABS: Ferritin 133 ng/mL (10-250)
[2024-06-19 11:22] LABS: HBc Num1 0.21 S/CO (0.00-0.79); HBsAGNum1 0.31 S/CO (0.00-0.99); Hepatitis A Antibody IgM 0.14 Index (0-0.79); Hepatitis B Core Antibody Nonreactive (Nonreactive); Hepatitis B Surface Antigen Negative (Negative); ~Hepatitis A Antibody IgM Nonreactive (Nonreactive); ~Hepatitis B Surface Antibody NONREACTIVE (Nonreactive); ~Hepatitis C Antibody Nonreactive (Nonreactive)
[2024-06-21 20:33] LABS: TS Negative Control Passed; TS Panel A 0; TS Panel B 1; TS Positive Control Passed; TSpotTB Negative (Negative)
== END 2024-06-19 07:30 | disposition home or self-care (01) ==
LOC: HO.HMGCLDS 07:29
PROVIDERS: PCP Internal Medicine; Visit Provider Internal Medicine Gastroenterology
DX: K51.90 Ulcerative colitis, unspecified, without complications (principal); K75.81 Nonalcoholic steatohepatitis (NASH)
CPT/HCPCS: 36415; 80053; 82728; 85025; 86140; 86481; 86704; 86706; 86709; 86803; 87340

== ENCOUNTER 2024-06-25 08:27 | Outpatient (AMB) | payer OTHER, SELFPAY ==
--- NOTE | 2024-06-25 08:47 | AM.OFFVISNUR ---
Intake Visit Reasons: Hep B #1 Allergies peanut Allergy (Intermediate, Verified 06/16/24 12:40) itchy throat talc Allergy (Intermediate, Verified 06/16/24 12:40) cough, itchy throat rosuvastatin Adverse Reaction (Intermediate, Verified 06/16/24 12:40) myalgia Nursing Note Pt came in for Hepatitis B vaccine first of 3 series. Administered to left deltoid. Pt tolerated well. Immunizations Recombivax HB (PF) 10 mcg/mL intramuscular suspension Performing Provider: Afsaneh Harley MD [place] [facility] [place] [facility] Administered by: Hortencia Kelly on 06/25/24 08:48 Dose Route Admin Location Dispensed Lot Number Expiration Date [facility] Surgeon 1 mL IM Left Deltoid 1 mL [id number] 10/02/25 [id number] [employer] VIS Given Date VIS Provided VIS Publication Date 06/25/24 Single Vaccine 22 Eligibility Eligibility Date Funding Source Not [facility] Eligible 06/25/24 Private Assessment & Plan Assessment & Plan Orders: Orders Hepatitis B Adult Immunization Today Z23 - Encounter for immunization Medications: New Recombivax HB (PF) (hepatitis B virus vacc.rec(PF)) 1.0 mL IM ONCE 1 mL 0RF NS Z23 - Encounter for immunization Coding
== END 2024-06-25 08:43 | disposition home or self-care (01) ==
LOC: HO.HMCC 08:27
PROVIDERS: PCP Internal Medicine; Visit Provider Internal Medicine
DX: Z23 Encounter for immunization (principal)

== ENCOUNTER → 2024-06-25 08:27 | Outpatient (BNVA) | payer OTHER, SELFPAY | PROVIDERS: PCP Internal Medicine; Visit Provider Internal Medicine | DX: Z23 Encounter for immunization (principal) | CPT/HCPCS: 90471; 90746 ==

== ENCOUNTER 2024-07-25 08:15 | Outpatient (AMB) | payer OTHER, SELFPAY ==
--- NOTE | 2024-07-25 08:36 | AM.OFFVISNUR ---
Intake Visit Reasons: Hep B second shot Allergies peanut Allergy (Intermediate, Verified 06/16/24 12:40) itchy throat talc Allergy (Intermediate, Verified 06/16/24 12:40) cough, itchy throat rosuvastatin Adverse Reaction (Intermediate, Verified 06/16/24 12:40) myalgia Nursing Note Pt came in for second dose of hep B series to left deltoid. Pt tolerate well. Pt to have last (3rd) series in 6 months. Pt aware of plan of care and agreed. Immunizations Recombivax HB (PF) 10 mcg/mL intramuscular suspension Performing Provider: Afsaneh Harley MD [place] [facility] [place] [facility] Administered by: Hortencia Kelly on 07/25/24 08:38 Dose Route Admin Location Dispensed Lot Number Expiration Date [facility] Home Help Aide 1 mL IM Left Deltoid 1 mL [id number] 10/02/25 78910-560-37 [employer] VIS Given Date VIS Provided VIS Publication Date 07/25/24 Single Vaccine 22 Eligibility Eligibility Date Funding Source Not [facility] Eligible 07/25/24 Private Assessment & Plan Assessment & Plan Orders: Orders Hepatitis B Adult Immunization Today Z23 - Encounter for immunization Medications: New Recombivax HB (PF) (hepatitis B virus vacc.rec(PF)) 1.0 mL IM ONCE 1 mL 0RF NS Z23 - Encounter for immunization Coding
== END 2024-07-25 08:57 | disposition home or self-care (01) ==
LOC: HO.HMCC 08:15
PROVIDERS: PCP Internal Medicine; Visit Provider Internal Medicine
DX: Z23 Encounter for immunization (principal)

== ENCOUNTER → 2024-07-25 08:15 | Outpatient (BNVA) | payer OTHER, SELFPAY | PROVIDERS: PCP Internal Medicine; Visit Provider Internal Medicine | DX: Z23 Encounter for immunization (principal) | CPT/HCPCS: 90471; 90746 ==

== ENCOUNTER 2025-01-23 08:19 | Outpatient (AMB) | payer OTHER, SELFPAY ==
--- NOTE | 2025-01-23 09:10 | AM.OFFVISNUR ---
Intake Visit Reasons: Heb B final Intake Note: Hep B #3 Allergies peanut Allergy (Intermediate, Verified 06/16/24 12:40) itchy throat talc Allergy (Intermediate, Verified 06/16/24 12:40) cough, itchy throat rosuvastatin Adverse Reaction (Intermediate, Verified 06/16/24 12:40) myalgia Immunizations Engerix-B (PF) 20 mcg/mL intramuscular suspension Performing Provider: Afsaneh Harley MD [place] [facility] [place] Administered by: Saloni Davila RN on 01/23/25 09:10 Dose Route Admin Location Dispensed Lot Number Expiration Date [employer] 1 mL IM Left Deltoid 1.0 mL [id number] 10/02/25 81317-354-72 [employer] Total Dispensed Waste 1 mL 0 % VIS Given Date VIS Provided VIS Publication Date 01/23/25 Single Vaccine 24 Eligibility Eligibility Date Funding Source Not [facility] Eligible 01/23/25 Private Assessment & Plan Assessment & Plan Orders: Orders Hepatitis B Adult Immunization Today Z23 - Encounter for immunization Coding
== END 2025-01-23 11:35 | disposition home or self-care (01) ==
LOC: HO.HMCC 08:20
PROVIDERS: PCP Internal Medicine; Visit Provider Internal Medicine
DX: Z23 Encounter for immunization (principal)

== ENCOUNTER → 2025-01-23 08:19 | Outpatient (BNVA) | payer OTHER, SELFPAY | PROVIDERS: PCP Internal Medicine; Visit Provider Internal Medicine | DX: Z23 Encounter for immunization (principal) | CPT/HCPCS: 90471; 90746 ==

== ENCOUNTER 2025-02-11 09:38 | Outpatient (AMB) | payer OTHER, SELFPAY ==
[2025-02-11 09:40] VITALS: BP 132/80; PULSE 76; O2SAT 97; BMI 34.0
--- NOTE | 2025-02-11 09:40 | MHC.PC.OV ---
Vital Signs 02/11/25 09:40 Height 5 ft 2 in Weight 186 lb BMI 34.0 BP 132/80 Blood Pressure Location Lt brachial Position Sitting Pulse 76 Pulse Source Pulse Oximeter Pulse Oximetry (%) 97 Intake Visit Reasons: PE Allergies pravastatin Allergy (Severe, Verified 02/11/25 09:54) Abdominal Pain peanut Allergy (Intermediate, Verified 02/11/25 09:54) itchy throat talc Allergy (Intermediate, Verified 02/11/25 09:54) cough, itchy throat rosuvastatin Adverse Reaction (Intermediate, Verified 02/11/25 09:54) myalgia Medication List - Last Reconciled 02/11/25 by Afsaneh Harley MD adalimumab (Humira Pen) inject one - 40 mg/0.8 mL pen every 2 weeks subcut albuterol sulfate 2.5 mg (3 mL) inhalation Q4-6H PRN fluticasone propionate 50 mcg/actuation 1 spray intranasal DAILY magnesium oxide 400 mg PO DAILY nebulizer accessories As directed for updraft treatments omeprazole 40 mg PO DAILY Symbicort 160-4.5 mcg/actuation (budesonide-formoterol) 2 puffs PO QPM NS Ventolin HFA 90 mcg/actuation (albuterol sulfate) 2 puffs inhalation Q6H PRN NS Tobacco use date assessed: 04/02/24 Dental Screening Dental Screen Date: 04/02/24 HPI PE HPI Details 64-year-old lady with past medical history significant for ulcerative colitis, currently on Humira, hypertension, mild intermittent asthma, generalized anxiety disorder, mixed dyslipidemia, presents today for her physical exam. Up-to-date with her breast cancer screening, had a breast asymmetry on the right for which she under went an ultrasound guided biopsy of the right breast which came back with benign findings. Has been advised to follow-up with the another mammogram in six-months but patient declined and states that she will just go for her next mammogram in a year. Up-to-date with her screening colonoscopy done earlier this year by Dr. Duenas, which showed presence of colitis in all segments of her colon and advised to repeat colonoscopy in 1-2 years. Her blood pressure is controlled on present treatment. She has been feeling well, with no complaints at present time. PENDING SALE TO [facility] Medical History (Updated 02/11/25 @ 10:05 by Afsaneh Harley MD) Family history of early CAD History of adenomatous polyp of colon Ulcerative colitis Essential hypertension Former cigarette smoker Leg cramping Moderate persistent asthma Tubular adenoma of colon Right hip pain Generalized anxiety disorder Menopause Mixed dyslipidemia Low vitamin D level Infliximab (Remicade) long-term use Surgical History History of colonoscopy History of esophagogastroduodenoscopy (EGD) Family History (Updated 02/11/25 @ 10:03 by Afsaneh Harley MD) Father CVD (cardiovascular disease) Hyperlipidemia Myocardial infarction Mother HTN (hypertension) Substance use disorder Mental health disorder Brother Depression Mental health disorder Paternal Aunt Myocardial infarction Sister Mental health disorder Myocardial infarction CVD (cardiovascular disease) Alcoholism Son No problems noted. Son No problems noted. Daughter No problems noted. 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 1. Little interest or pleasure in doing things: not at all 2. Feeling down, depressed, or hopeless: not at all 3. Trouble falling or staying asleep, or sleeping too much: not at all 4. Feeling tired or having little energy: not at all 5. Poor appetite or overeating: not at all 6. Feeling bad about yourself - or that you are a failure or have let yourself or your family down: not at all 7. Trouble concentrating on things, such as reading the newspaper or watching television: not at all 8. Moving or speaking so slowly that other people could have noticed. Or the opposite - being so fidgety or restless that you have been moving around a lot more than usual: not at all 9. Thoughts that you would be better off or of hurting yourself in some way: not at all Total score: 0 Depression Screening Interpretation: Negative Depression Screening Done: Yes Source: Developed by Drs. Nj Machuca, Tracey Givens, Raul Robbins and colleagues, with an educational spencer from [employer]. Thrive Questionnaire Date Thrive assessed: 03/26/24 I am a: Patient What is your living situation today?: I have a steady place to live Within the past 12 months, did the food you bought not last and you didn't have the money to get more?: Never true Within the past 12 months, did you worry whether your food would run out before you got money to buy more?: Often true Do you have trouble paying for medicines?: No Do you have trouble getting transportation to medical appointments?: No Do you have trouble paying your heating and electricity bill?: No Do you have trouble taking care of your child, family member or friend?: No Do you have trouble with day-to-day activities such as bathing, preparing meals, shopping, managing finances, etc.?: No Are you currently unemployed and looking for a job?: No Are you interested in more education?: No Currently or been in a relationship where the following occur: No concerns reported THRIVE Score: 1 ZULAY-7 AMB Questionnaire ZUALY-7 Date ZULAY - 7 assessed: 04/02/24 Source: Developed by Drs. Nj Machuca, Tracey Givens, Raul Robbins and colleagues, with an educational spencer from [employer]. Review of Systems Const Denies fatigue, Denies headache(s) and Denies weakness Eyes Denies change in vision ENT Denies dizziness, Denies headache(s) and Denies sore throat Card Denies chest pain, Denies lightheadedness and Denies palpitations Resp Denies chest congestion GI Denies abdominal pain, Denies melena, Denies bloating, Denies hematochezia, Denies change in bowel habits and Denies heartburn Denies hematuria, Denies urinary frequency, Denies dysuria, Denies prolapse symptoms, Denies urinary incontinence and Denies urinary urgency Musc Reports no additional complaints Skin/Breast Denies breast swelling, Denies breast pain, Denies breast mass, Denies lesions and Denies rash Neuro Denies dizziness, Denies headache(s) and Denies weakness Psych Reports no additional complaints Endo Denies fatigue, Denies polydipsia, Denies polyuria and Denies palpitations Clarke/Lymph Denies easy bruising Aller/Immun Denies seasonal rhinorrhea Physical exam (Primary Care) Vital Signs: Last Vital Signs Pulse 76 02/11/25 09:40 BP 132/80 02/11/25 09:40 Pulse Ox 97 02/11/25 09:40 BMI result Body Mass Index 34.0 Tobacco/Smoking Status: Tobacco use Status Tobacco use date assessed 04/02/24 02/11/25 09:40 Patient Tobacco Use Status Former Tobacco user 02/11/25 09:40 Tobacco use type Cigarette 02/11/25 09:40 e-Cigarette/Vaping Use Never Used 02/11/25 09:40 Depression Screening Interpretation: Negative Thrive Assessment: Date of Thrive Assessment Date Thrive assessed 03/26/24 02/11/25 09:40 Currently or been in a relationship where the following occur: No concerns reported Const Other: Alert oriented x3, no acute distress noted ambulatory with normal gait HENDE Head: Yes normocephalic Ears: external ears normal General nose exam: Normal external nose present Face and sinus: Yes face symmetric Mouth: Normal oral and palatal mucosa present and moist mucous membranes Eyes General: appearance normal, both eyes and all related structures Neck Neck: Yes full ROM, Yes no lymphadenopathy and Yes supple Chest Chest palpation & inspection: normal inspection of the chest Breast/axilla palpation: normal palpation of the breasts Resp Effort & Inspection: normal respiratory effort and able to speak in complete sentences Auscultation: clear to auscultation bilaterally Cardio Other: S1-S2 present regular rate and rhythm GI Inspection: Yes normal to inspection Palpation (GI): Soft to palpation, nontender, no guarding and no masses Auscultation: normal bowel sounds General: Yes no CVA tenderness Back/Spine/Pelvis Back: no CVA tenderness and No back tenderness Skin General skin exam: no rashes or lesions noted Neuro General: gait normal, tone normal, moves all extremities, Normal light touch and pain sensation, no focal motor deficits, CN's II-XI intact bilaterally and normal sensation to monofilament Extrem Other: No gross bone deformity or joint swelling seen, General: Yes full ROM, Yes no joint enlargement, Yes no clubbing, cyanosis or edema, Yes no calf tenderness and Yes normal gait Psych Appearance: grossly normal and well kempt Mental Status: mental status grossly normal Speech and movement: Normal speech and movement present Affect: normal affect Coding Level of Care Code Est Pt Prev Care 40-64y(26419) Diagnoses Annual visit for general adult medical examination with abnormal findings Z00. Ulcerative colitis without complications K51.90 Low vitamin D level R79.89 Mixed dyslipidemia E78.2 Moderate persistent asthma without complication J45.40 Asthma complication type: uncomplicated History of adenomatous polyp of colon Z86.0101 Assessment & Plan Assessment & Plan (1) Annual visit for general adult medical examination with abnormal findings: Code(s): Z00.01 - Encounter for general adult medical examination with abnormal findings Plan: Will check appropriate labs. Recommended dental visit every 6 months and regular eye exams, at least every 2 years. Take adequate calcium in diet and vitamin-D 3 at 2000 IU per cap once a day, in addition to weight-bearing exercises to help maintain good muscle tone and weight control. Instructed to do self-breast exam, and recommended to keep her follow-up six-month mammogram appointment next year for a follow-up. Up-to-date with her screening colonoscopy, done by Dr. Duenas. Up-to-date with her vaccines (2) Ulcerative colitis without complications: Code(s): K51.90 - Ulcerative colitis, unspecified, without complications Category: Medical Plan: Currently followed by Dr. Duenas and is on Humira (3) Low vitamin D level: Code(s): R79.89 - Other specified abnormal findings of blood chemistry Category: Medical Plan: Repeat vitamin-D level ordered. Advise patient to at least start with 2000 units of vitamin D3 daily (4) Mixed dyslipidemia: Code(s): E78.2 - Mixed hyperlipidemia Category: Medical Plan: Fasting lipid panel ordered. Reinforced importance of adhering to a healthy diet, low in cholesterol and saturated fats, high in fiber, lean meat and fruits and vegetables (5) Moderate persistent asthma: Code(s): J45.40 - Moderate persistent asthma, uncomplicated Category: Medical Qualifiers: Asthma complication type: uncomplicated Qualified Code(s): J45.40 - Moderate persistent asthma, uncomplicated Plan: Continue Symbicort and Ventolin inhaler used as needed for episodes of bronchospasm and wheezing (6) History of adenomatous polyp of colon: Code(s): Z86.0101 - Personal history of adenomatous and serrated colon polyps Category: Medical Plan: Repeat colonoscopy in 1-[address] Duenas Orders: Orders Comprehensive Stewardson. Panel Fast 02/11/25 E78.2 - Mixed hyperlipidemia, F41.1 - Generalized anxiety disorder, I10 - Essential (primary) hypertension, J45.40 - Moderate persistent asthma, uncomplicated, K51.90 - Ulcerative colitis, unspecified, without complications, R79.89 - Other specified abnormal findings of blood chemistry, Z00.01 - Encounter for general adult medical examination with abnormal findings, Z86.0101 - Personal history of adenomatous and serrated colon polyps Lipid Panel 02/11/25 E78.2 - Mixed hyperlipidemia, F41.1 - Generalized anxiety disorder, I10 - Essential (primary) hypertension, J45.40 - Moderate persistent asthma, uncomplicated, K51.90 - Ulcerative colitis, unspecified, without complications, R79.89 - Other specified abnormal findings of blood chemistry, Z00.01 - Encounter for general adult medical examination with abnormal findings, Z86.0101 - Personal history of adenomatous and serrated colon polyps Vitamin D 25-OH Total 02/11/25 E78.2 - Mixed hyperlipidemia, F41.1 - Generalized anxiety disorder, I10 - Essential (primary) hypertension, J45.40 - Moderate persistent asthma, uncomplicated, K51.90 - Ulcerative colitis, unspecified, without complications, R79.89 - Other specified abnormal findings of blood chemistry, Z00.01 - Encounter for general adult medical examination with abnormal findings, Z86.0101 - Personal history of adenomatous and serrated colon polyps CT Coronary Calcium Score 02/11/25 E78.2 - Mixed hyperlipidemia, I10 - Essential (primary) hypertension, Z82.49 - Family history of ischemic heart disease and other diseases of the circulatory system, Z87.891 - Personal history of nicotine dependence
== END 2025-02-11 10:28 | disposition home or self-care (01) ==
LOC: HO.HMCC 09:39
PROVIDERS: PCP Internal Medicine; Visit Provider Internal Medicine
DX: Z00.01 Encounter for general adult medical examination with abnormal findings (principal); K51.90 Ulcerative colitis, unspecified, without complications; R79.89 Other specified abnormal findings of blood chemistry; E78.2 Mixed hyperlipidemia; J45.40 Moderate persistent asthma, uncomplicated; Z86.0101 Personal history of adenomatous and serrated colon polyps

== ENCOUNTER → 2025-02-11 09:38 | Outpatient (BNVA) | payer OTHER, SELFPAY | PROVIDERS: PCP Internal Medicine; Visit Provider Internal Medicine | DX: Z00.01 Encounter for general adult medical examination with abnormal findings (principal); K51.90 Ulcerative colitis, unspecified, without complications; R79.89 Other specified abnormal findings of blood chemistry; E78.2 Mixed hyperlipidemia; J45.40 Moderate persistent asthma, uncomplicated; Z86.0101 Personal history of adenomatous and serrated colon polyps | CPT/HCPCS: 99396 ==